=== PATIENT | male | born 1950 | race Caucasian/White ===

== ENCOUNTER 2018-02-01 17:37 | Emergency (ER) | payer MEDICARE ==
[~2018-02-01] VITALS: Ht 172.7 cm; Wt 90.9 kg
[~2018-02-01 17:37] MED LIST: ALBUTEROL S2.5 MG/.5 NEB; ALBUTEROL90 MCG IN; ALDACTONE25 MG PO; ASA LOW DOSE81 MG OR; ASPIRIN LOW81 M1 PO; ASPIRIN81 MG PO; ATORVASTATIN CA40 MG PO; BUMETANIDE2 MG PO; C 250 PO; CARVEDILOL25 MG PO; CENTRUM OR; CIPROFLOXACN500 MG PO; COREG6.25 MG OR; DUONEB IN; FAMOTIDINE20 M1 PO; FINASTERIDE5 MG PO; FOLIC ACID1 MG OR; FUROSEMIDE40 MG PO; GABAPENTIN300 MG PO; HUMALOG100 MG/ML SC; IPRATROPIU0.5 MG/3 M IN; LASIX 40 MG40 MG/TAB PO; LIPITOR40 M1 PO; LISINOPRIL2.5 MG PO; LISINOPRIL5 MG PO; LORTAB 5 OR; MORPHINE; NEURONTIN300 MG PO; NO HOME MEDS; NORCO1 TA1 PO; NOVOLIN 70/30 INNLT SC; NOVOLIN 70/30 SC; NOVOLIN 701000 UNITS SC; PEPCID40 MG OR; PREDNISONE10 MG PO; PRINIVIL5 MG OR; SPIRIVA IN; SYMBICORT 80-4.5MCG IN; SYMBICORT1 AE1 IN; TAMSULOSIN HCL0.4 MG PO; TOUJEO SOL300 UNIT/M SC; VITAMIN C500 MG OR; ZOCOR20 MG OR; [UNRECOGNIZED DRUG - OTHER] PO
[2018-02-01 18:15] LABS: HEMATOCRIT 48.7 % (39.0-50.0); IMMATURE GRANULOCYTES 0.3 % (0.0-1.0); MEAN CELL VOLUME 90.4 fL CALC (80.0-100.0); MEAN CORPUSCULAR HGB 27.8 pG CALC (26.0-32.0); MEAN CORPUSCULAR HGB CONC 30.8 g/L CALC (32.0-36.0); NEUT# 4.86 thou/uL (1.82-7.42); RED BLOOD COUNT 5.39 mill/uL (4.70-6.10)
[2018-02-01 18:23] LABS: ACT PARTIAL THROMBO TIME 24.6 SECONDS (20.0-32.5); PROTHROMBIN TIME 11.4 SECONDS (9.0-12.5)
[2018-02-01 18:27] LABS: ALBUMIN 3.9 g/dL (3.2-5.0); BILIRUBIN, TOTAL 0.6 mg/dL (0.0-1.4); POTASSIUM 4.4 mmol/l (3.5-5.1)
[2018-02-01 18:28] LABS: CREATININE 3.2 mg/dL (0.7-1.3); TOTAL PROTEIN 7.6 g/dL (6.3-8.2)
[2018-02-01] MEDS ORDERED: KLOR-CON 1010 MEQ PO (18:49)
[2018-02-01] MEDS ORDERED: ATORVASTATIN CA40 MG PO (18:51)
[2018-02-01 19:53] LABS: URINE BILIRUBIN - DIPSTICK NEGATIVE (NEGATIVE); URINE BLOOD DIPSTICK LARGE (NEGATIVE); URINE COLOR YELLOW; URINE GLUCOSE - DIPSTICK NEGATIVE (NEGATIVE); URINE KETONE NEGATIVE (NEGATIVE); URINE NITRITE - DIPSTICK NEGATIVE (Negative); URINE PROTEIN - DIPSTICK NEGATIVE (NEG-TRACE); URINE SPECIFIC GRAVITY 1.025; URINE UROBILINOGEN - DIPSTICK 0.2 E.U./dL (0.2)
[2018-02-01 20:00] LABS: URINE CLARITY CLOUDY; URINE LEUK ESTERASE MODERATE (NEGATIVE)
[2018-02-01 20:02] VITALS: BP 131/68
[2018-02-01 20:22] LABS: URINE RBC TNTC RBC/hpf (0-5); URINE SQUAMOUS EPITHELIAL CELL FEW EPI/hpf (0-FEW)
== END 2018-02-01 19:44 | disposition short-term general hospital (02) ==
LOC: ED 17:37
PROVIDERS: Emergency Medicine
DX: I63.9 Cerebral infarction, unspecified (principal); R47.81 Slurred speech; R29.810 Facial weakness; G81.91 Hemiplegia, unspecified affecting right dominant side; R29.703 NIHSS score 3; E11.40 Type 2 diabetes mellitus with diabetic neuropathy, unspecified; I10 Essential (primary) hypertension; B19.20 Unspecified viral hepatitis C without hepatic coma; G89.29 Other chronic pain; M54.5 Low back pain; Z95.1 Presence of aortocoronary bypass graft; Z95.810 Presence of automatic (implantable) cardiac defibrillator; Z96.89 Presence of other specified functional implants
CPT/HCPCS: J2997

== ENCOUNTER 2019-10-27 10:26 | Inpatient (IN) | payer MEDICARE ==
[~2019-10-27] VITALS: Ht 180.3 cm; Wt 101.4 kg
[~2019-10-27 10:26] MED LIST changes: +KLOR-CON 1010 MEQ PO
--- NOTE | 2019-10-27 10:41 | NUR ---
PATIENT TO ROOM, BEDSIDE TRIAGE COMPLETED.
--- NOTE | 2019-10-27 11:00 | NUR ---
PT STATES HAVING SOB STARTING YESTERDAY AND WORSENING TODAY. PT INITAL O2 IN MID 80S, PT MOSTLY ABLE TO COMPLETE A FULL SENTENCE. PT IS AOX4, DENIES ANY C/P, N/V. PT HAS DIMINISHED LUNG SOUNDS
[2019-10-27 11:24] LABS: HEMATOCRIT 43.8 % (39.0-50.0); HEMOGLOBIN 12.8 g/dl (14.0-18.0); IMMATURE GRANULOCYTES 0.4 % (0.0-5.0); MEAN CELL VOLUME 87.1 fL CALC (80.0-100.0); MEAN CORPUSCULAR HGB 25.4 pG CALC (26.0-32.0); MEAN CORPUSCULAR HGB CONC 29.2 g/L CALC (32.0-36.0); NEUT# 4.67 thou/uL (1.82-7.42); RED BLOOD COUNT 5.03 mill/uL (4.70-6.10); RED CELL DISTRI WIDTH 15.3 % (11.5-15.5)
[2019-10-27 11:32] LABS: ALBUMIN 4.3 g/dL (3.2-5.0); POTASSIUM 5.1 mmol/l (3.5-5.1); TOTAL PROTEIN 8.1 g/dL (6.3-8.2)
--- NOTE | 2019-10-27 11:34 | NUR ---
PT PLACE ON BIPAP PER DR. CARDENAS AT 1120. B/S ARE CLEAR ON LEFT SIDE, EXP WHEEZES ON RIGHT SIDE.
[2019-10-27 11:39] LABS: BILIRUBIN, TOTAL 1.2 mg/dL (0.0-1.4); CREATININE 1.9 mg/dL (0.7-1.3)
--- NOTE | 2019-10-27 12:00 | NUR ---
PT RESTING ON STRETCER, IV PATENT WITH FLUIDS RUNNING. PT STATES BREATHING HAS IMPROVED WITH BIPAP
--- NOTE | 2019-10-27 12:34 | NUR ---
PT RESTING ON STRETCHER, IV PATENT WITH ANTIBIOTICS RUNNING, BREATHING HAS IMPROVED ON BIPAP
--- NOTE | 2019-10-27 12:38 | NUR ---
Patient made inpatient by Dr. Sykes and Dr. Nguyen
--- NOTE | 2019-10-27 12:38 | NUR ---
SBAR PRINTED TO FLOOR
[2019-10-27 12:45] VITALS: BP 158/82
--- NOTE | 2019-10-27 13:00 | NUR ---
PT ASLEEP ON STRETHCER.
--- NOTE | 2019-10-27 14:00 | NUR ---
PT RESTING ON STRETHCER, IV PATNENT WITH FLUIDS RUNNING, PT MAINTAINING ON BIPAP
--- NOTE | 2019-10-27 14:34 | NUR ---
PT ASLEEP ON STRETCHER, IV PATENT, 200 ML OF URINE OUTPUT, CONTINUING ON BIPAP
[2019-10-27 14:45] VITALS: BP 156/80
--- NOTE | 2019-10-27 15:00 | NUR ---
PT ASLEEP ON STRETHCER
--- NOTE | 2019-10-27 16:00 | NUR ---
PT RESTING ON STRETCHER, ICU MEDS GIVEN
--- NOTE | 2019-10-27 16:34 | NUR ---
PT HAS 200 ML OF URINE OUTPUT
--- NOTE | 2019-10-27 17:00 | NUR ---
PT ON STRETCHER, PLACED IN POSITION OF COMFORT. ATTEMPING TO GET IN PT BED
[2019-10-27 17:07] VITALS: BP 164/86
--- NOTE | 2019-10-27 18:54 | NUR ---
RT AT BEDSIDE TO REMOVE BIPAP, PT PLACED ON HIGH FLOW NASAL CANULA TO EAT DINNER.
[2019-10-27 19:00] VITALS: BP 136/71
--- NOTE | 2019-10-27 19:00 | NUR ---
PT REMOVED FROM BIPAP TO EAT DINNER. WORE NASAL CANULA FOR DINNER. PLACED BACK ON BIPAP
--- NOTE | 2019-10-27 19:02 | NUR ---
PT FINISHED MEAL- [facility]
--- NOTE | 2019-10-27 19:14 | NUR ---
REPORT GIVEN TO CORBY COELHO
--- NOTE | 2019-10-27 19:52 | NUR ---
PHARM CALLED TO PUT BUMEX/INSULIN IN PYXIS
--- NOTE | 2019-10-27 22:13 | NUR ---
TREATMENT IN PROGRESS
--- NOTE | 2019-10-27 22:26 | NUR ---
TO FLOOR VIA W/C WITH BIPAP WITH NURSE AND RT.
--- NOTE | 2019-10-27 22:35 | NUR ---
PATIENT ARRIVES VIA WC ACCOMPANIED BY EMT TECH AND ON BIPAP, RT WADNER AT SIDE. PT ABLE TO WALK TO BED, USED URINAL BEFORE LAYING DOWN. VOIDED 225 ML, YELLOW/CLEAR URINE. ON BIPAP 02 35%. NO SOB NOTED. PT DENIES SOB OR PAIN. PT DOES HAVE AN INTERNAL MORPHINE THAT HE REPORTS IS OFF. ALERT AND ORIENTED X4. HEAD TO TOE NURSING ASSESSMENT PERFORMED. PATIENT IS ABLE TO ANSWER ALL QUESTIONS, FOLLOW COMMANDS. POC FOR TONIGHT DISCUSSED, SELF REPOSITIONS. ABLE TO SIHN INVENTORY SHEET AND FALL SHEET. RAC 20G SLAINE LOCKED. ABLE TO DRINK CUP OF ICED WATER. DECLINE FLU AND PNA VACCINES. DRIVES SELF. NO RECENT STRESSES. NKA. 219.8 LBS, BED ZEROED BEFORE PT ARRIVED. LAST BM 10/26. USES WALKER OR CANE AT HOME. REPORTS HE USES O2 AT HOME NEEDED AND BEDTIME. SELF REPOSITIONS. URINAL AT BEDSIDE. CALL LIGHT WITHIN REACH.
[2019-10-27 23:00] VITALS: BP 156/77
--- NOTE | 2019-10-27 23:46 | NUR ---
PT'S DAUGHTER CALLED, DID NOT HAVE PASSCODE. INFORMED PT WILL BE GIVEN PASSCODE AND HE CAN GIVE IT TO HER. DAUGHTER AGREES, WILL CALL BACK TOMORROW AM.
--- NOTE | 2019-10-27 23:55 | NUR ---
TO FLOOR VIA W/C WITH BIPAP
[2019-10-28] VITALS (18 sets, daily range): BP systolic 123–167; BP diastolic 64–93
--- NOTE | 2019-10-28 03:08 | NUR ---
PT RESTS WITH HOB 30 DGEREES. BIPAP INTACT. RESTS WITH EYES CLOSED. CALL LIGHT WITHIN REACH.
--- NOTE | 2019-10-28 05:14 | NUR ---
PATIENT ABLE TO USE THE URINAL. REMAINS ON BIPAP. NO ACUTE DISTRESS SHOWN. CALL LIGHT WITHIN REACH.
--- NOTE | 2019-10-28 06:09 | NUR ---
PT LAYS WITH HOB ABOUT 30 DEGREES. ON BIPAP. RESTS WITH EYES CLOSED. CALL LIGHT WITHIN REACH.
[2019-10-28 06:10] LABS: CHOLESTEROL HDL RATIO 3.5 (<4.4 (CALC))
--- NOTE | 2019-10-28 07:25 | NUR ---
PT RESTING ON STRECTHER WITH BI PAP IN PLACE SEE FLOW SHEET FOR SETTINGS, ALERT AND ORIENTED, DENIES PAIN OR DISCOMFORT, AM ASSESSMENT COMPLETED SEE INTERVENTIONS, SKIN INTACT SOME BRONZING NOTED TO BILATERAL LE WITH SMALL ABRASION NOTED TO PEREA SCABBED AOVER WITH NO S/S OF INFECTION, TRACE EDEMA WITH PPPB, ABD SOFT PT STATES LAST BM 10/26/19 (HE THINKS) VOIDS USING URINAL W/O INCIDENT, AM ACCU CHECK 288 WILL PROVIDE COVERAGE ORDERED, SAFETY MEASURES REINFORCED, CALL THURSTON WITHIN REACH ,WILL CONTINUE TO MONITOR.
--- NOTE | 2019-10-28 08:05 | NUR ---
BIPAP PLACED STANDBY. PT. PLACED ON 2L NC.
--- NOTE | 2019-10-28 08:10 | NUR ---
BI PAP OFF AND SET UP ASSIST PROVIDED FOR AM MEAL, PT ABLE TO ASSIST WITH REPOSITION, O2 ON AT 2L VIA NC, PT STATES HE WEARS IT AT HOME WELL, MEDICATED WITH BUMEX ORDERED AND URINAL WITHIN REACH.
--- NOTE | 2019-10-28 08:35 | NUR ---
PT OOB TO BSC WITH MOD ASSIST, TOLERATED ACITVITY WELL, CALL THURSTON WITHIN REACH
--- NOTE | 2019-10-28 08:40 | NUR ---
AT BEDSIDE FOR AM ROUNDS, POC DISCUSSED
--- NOTE | 2019-10-28 08:55 | NUR ---
PT CONTINENT OF MODERATE AMOUNT CLEAR YELLOW URINE AND MODERATE SOFT BROWN BM, SELF STEW CARE PROVIDED AND MOD ASSIST BACK TO BED, CALL THURSTON WITHIN REACH
--- NOTE | 2019-10-28 10:11 | NUR ---
CASE MGMT AT BEDSIDE
--- NOTE | 2019-10-28 11:45 | NUR ---
PT RESTING INBED, OFFERS NO NEW COMPLAINTS, CONTINUES TO TOLERATE NC WITHNO SOB OR DISTRESS NOTED, WILL CONTINUE TO MONITOR.
--- NOTE | 2019-10-28 12:35 | NUR ---
PT APPETITE GOOD WITH MODERATE TO GOOD PO INTAKE AT MEALS, TOLERATES WELL AND DENIES ANY COMPLAINTS, CALL THURSTON WITHIN REACH
--- NOTE | 2019-10-28 13:50 | NUR ---
PT RESTING IN BED, DOZES INTERMITTENTLY, NO COMPLAINTS OFFERED, CALLBELL WITHIN REACH.
--- NOTE | 2019-10-28 14:29 | NUR ---
MEDICATED ORDERED, TOLERATED WELL, O2 REMAINS ON VIA C WITH PT TOLERATING WELL. VS STABLE PT REMAINS AFEBRILE, WILL CONTINUE TO MONITOR.
--- NOTE | 2019-10-28 15:35 | NUR ---
PHONE ASSURANCE ANALYST PROVIDED FOR PT TO CHARGE HIS CELL PHONE, URINAL AT BEDSIDE AND PT USING W/O INCIDENT, CALL THURSTON WITHIN REACH WILL CONTINUE TO MONITOR.
--- NOTE | 2019-10-28 16:32 | NUR ---
PT RESTING IN BED WATCHING TELEVISION, NO S/S OF DISTRESS OR DISCOMFORT NOTED O2 REMAINS ON VIA NC WITH O2 SATS MAINTAINED 88-93% WILL CONTINUE TO MONITOR.
--- NOTE | 2019-10-28 17:38 | NUR ---
SET UP ASSIST PROVIDED FOR PM MEAL, CALL THURSTON WITHIN REACH
--- NOTE | 2019-10-28 17:55 | NUR ---
INTO SEE PT, PLAN OF CARE DISCUSSED
--- NOTE | 2019-10-28 19:30 | NUR ---
awake. denies resp distress. o2 cont per nc. assistant district attorney shows sinus rhythm pacs pvcs hr 74. #20 rac saline lock. po fluids taken fair. voids per urinal. fall precautions cont.
--- NOTE | 2019-10-28 22:00 | NUR ---
watching tv. no c/o voiced. quality assurance monitor body shows sinus rhythm pacs pvcs hr 74.
[2019-10-29] VITALS (12 sets, daily range): BP systolic 102–147; BP diastolic 57–93
--- NOTE | 2019-10-29 00:01 | NUR ---
eyes closed. no distress. awake overnight monitor shows sinus rhythm pacs pvcs hr 62.
--- NOTE | 2019-10-29 02:00 | NUR ---
resting quietly. resps even & unlabored. no apparent distress.
--- NOTE | 2019-10-29 04:00 | NUR ---
eyes closed. no apparent distress. o2 cont.
--- NOTE | 2019-10-29 05:25 | NUR ---
lab here. blood drawn.
[2019-10-29 06:09] LABS: HEMATOCRIT 39.2 % (39.0-50.0); HEMOGLOBIN 11.5 g/dl (14.0-18.0); MEAN CELL VOLUME 88.1 fL CALC (80.0-100.0); MEAN CORPUSCULAR HGB 25.8 pG CALC (26.0-32.0); MEAN CORPUSCULAR HGB CONC 29.3 g/L CALC (32.0-36.0); RED BLOOD COUNT 4.45 mill/uL (4.70-6.10); RED CELL DISTRI WIDTH 15.3 % (11.5-15.5)
[2019-10-29 06:31] LABS: CREATININE 1.9 mg/dL (0.7-1.3); MAGNESIUM 2.3 mg/dL (1.6-2.3)
[2019-10-29 06:50] LABS: POTASSIUM 5.3 mmol/l (3.5-5.1)
--- NOTE | 2019-10-29 09:49 | NUR ---
REPORT FROM YENNI BERMUDEZ. PT AWAKE, ALERT AND ORIENTED WATCHING TV AT THIS TIME. RESP EVEN AND UNLABORED WITH NO COUGH NOTED AT THIS TIME. SIDE RAILS UP X2 WITH CALL LIGHT AND URINAL WITHIN REACH. TELE SR WITH OCCASIONAL PVCS. NO PAIN OR NEEDS AT THIS TIME. URINAL EMPTIED.
--- NOTE | 2019-10-29 10:16 | NUR ---
PT ASLEEP AND RESTING IN BED QUIETLY. TELE A FIB. NO DISTRESS NOTED.
--- NOTE | 2019-10-29 12:33 | NUR ---
PT ASLEEP AFTER EATING LUNCH. NO DISTRESS NOTED. SIDE RAILS UP X2 CALL LIGHT WITHIN REACH.
--- NOTE | 2019-10-29 16:46 | NUR ---
pt resting quietly with no c/o at this time. resp even and unlabored. tele SR with occ pvc's HR 66.
--- NOTE | 2019-10-29 20:00 | NUR ---
PATIENT LAYING SUPINE WITH EYES OPEN WATCHING TV, ON ROOM AIR AND O2 GREATER 95%, NO ACTIVE DISRESS NOTED, NO C/O PAIN, ALERT ND ORIENTED X3. AFEBRILE, SINUS RHYTHM ON TELE WITH hr BETWEEN 60-65. HEAD TO TOE ASSESSMENT PERFORMED, POC FOR TOBIGHT DISCUSSED, PATIENT VERBALIZE UNDERSTANDING.
--- NOTE | 2019-10-29 22:00 | NUR ---
Patient laying in bed with eyes open watching TV, No c/o of pain nor discomfort. No s/s of resp. distress.
[2019-10-30] VITALS (10 sets, daily range): BP systolic 114–155; BP diastolic 65–87
--- NOTE | 2019-10-30 | NUR ---
Patient laying in bed with eyes closed, No distress,
--- NOTE | 2019-10-30 02:00 | NUR ---
Patient laying in bed with eyes closed, no distress noted
--- NOTE | 2019-10-30 03:56 | NUR ---
Patient laying in bed with eyes closed, no distress noted, no s/s of pain.
--- NOTE | 2019-10-30 06:12 | NUR ---
Patient up in bed sitting up watching TV. Nurse emptied 500ml of urine. Patient did not c/o pain nor discomfort. Patient not in distress.
[2019-10-30 06:35] LABS: CREATININE 1.8 mg/dL (0.7-1.3); MAGNESIUM 2.3 mg/dL (1.6-2.3)
[2019-10-30 06:57] LABS: POTASSIUM 5.4 mmol/l (3.5-5.1)
--- NOTE | 2019-10-30 07:33 | NUR ---
PT RESTING IN BED, A&OX4, ABLE TO MAKE NEEDS KNOWN. PT DENIES CP, SOB OR DISTRESS AT THIS TIME.HR, 64. PT SAO2@90% ON 3LPM VIA NC. LS WITH WHEZZING THROUGHOUT. PT ACCUCHECK 118, NO S/S COVERAGE AT THIS TIME. ABDOMEN SOFT, DISTENDED, NON-TENDER BSX4 ACTIVE. LBM 10-28-2019. CALL LIGHT IN REACH. WILL MONITOR.
--- NOTE | 2019-10-30 09:24 | NUR ---
pt off unit for cxr 2v via wc.
--- NOTE | 2019-10-30 09:29 | NUR ---
PT BACK FROM X RAY.
--- NOTE | 2019-10-30 09:46 | NUR ---
PT ASSISTED TO RECLINER TO SIT UP FOR A BIT. SLOW, WEAK, GAIT NOTED.
--- NOTE | 2019-10-30 11:25 | NUR ---
NOTIFIED RT OF PENDING DUONEB.
--- NOTE | 2019-10-30 12:00 | NUR ---
PT SITTING IN THE RECLINER. RESPIRATIONS EVEN/UNLABORED. SA02@93% ON 3LPM VIA NC. CALL LIGHT IN REACH. URINAL AT BEDSIDE. WILL MONITOR.
--- NOTE | 2019-10-30 14:00 | NUR ---
PT SITTING IN THE RECLINER, FRESH WATER PROVIDED. PT OFFERS NO COMPLAINTS AT THIS TIME. CALL LIGHT IN REACH. NARINDER MONITOR.
--- NOTE | 2019-10-30 16:15 | NUR ---
DR. GRIGSBY AT [facility] FOR ASSESSMENT AND TO DISCUSS PLAN OF CARE. PT TO STAY 1 MORE NIGHT.
--- NOTE | 2019-10-30 17:19 | NUR ---
RT AT BEDSIDE FOR TX.
--- NOTE | 2019-10-30 17:37 | NUR ---
DIETARY ON UNIT, DINNER TRAY SET UP.
--- NOTE | 2019-10-30 18:21 | NUR ---
ASSISTED PT BACK TO BED, PT TOLERATED WELL, WITH SLOW STEADY GAIT. RESPIRATIONS EVEN/UNLABORED. CALL LIGHT IN REACH. WILL MONITOR.
--- NOTE | 2019-10-30 19:00 | NUR ---
awake. denies resp diff. o2 cont per nc. trailer truck driver shows sinus rhythm 1st degree avb pacs pvcs. po fluids taken well. voids per urinal. fall precautions cont.
--- NOTE | 2019-10-30 22:00 | NUR ---
watching tv. no distress. o2cont.
[2019-10-31] VITALS (8 sets, daily range): BP systolic 130–172; BP diastolic 69–93
--- NOTE | 2019-10-31 00:01 | NUR ---
eyes closed. no distress. child monitor shows sinus rhythm 1st degree avb pvcs pacs hr 66.
--- NOTE | 2019-10-31 02:00 | NUR ---
resting quietly. resps even & unlabored. no apparent distress.
--- NOTE | 2019-10-31 04:30 | NUR ---
extension tubing attached. amb with 1 assist to br. slightly unsteady on feet. sao2 82% upon return from br. denies distress.
--- NOTE | 2019-10-31 05:00 | NUR ---
lab here. blood drawn.
[2019-10-31 05:49] LABS: CREATININE 1.6 mg/dL (0.7-1.3)
[2019-10-31 05:53] LABS: POTASSIUM 5.5 mmol/l (3.5-5.1)
--- NOTE | 2019-10-31 05:58 | NUR ---
no acute distress this shift. color television console monitor shows sinus rhythm sinus rhythm 1st degree avb pvcs pacs hr 60
--- NOTE | 2019-10-31 07:00 | NUR ---
RECIEVED REPORT FROM LARA HYMAN. ASSUMED PT CARE.
--- NOTE | 2019-10-31 08:00 | NUR ---
pt a&ox4, able to make needs known. respirations even/unlabored. assessment completed. call light in reach. will monitor.
--- NOTE | 2019-10-31 10:00 | NUR ---
ASSISTED PT TO RECLINER, COMPLETE BATH, LINEN CHANGED, MOUTH CARE GIVEN. PT TOLERATED WELL. REMAINS SITTING IN RECLINER, CALL LIGHT IN REACH. WILL MONITOR.
--- NOTE | 2019-10-31 11:30 | NUR ---
DIETARY ON UNIT, LUNCH TRAY SET UP.
--- NOTE | 2019-10-31 12:27 | NUR ---
PT STATES HE IS FEELING BETTER TODAY. ANTICIPATING GOING HOME. SA02@94% ON 3LPM VIA RI. PT REMAINS SITTING UP IN RECLINER. CALL LIGHT IN REACH. WILL MONITOR.
--- NOTE | 2019-10-31 12:30 | NUR ---
DR. TRACEY AT [facility] FOR ASSESSMENT AND TO DISCUSS PLAN OF CARE. NEW ORDERS RECIEVED.
[2019-10-31] MEDS ORDERED: NORVASC5 M1 PO (12:37)
[2019-10-31] MEDS ORDERED: ZITHROMAX250 MG PO (12:54)
[2019-10-31] MEDS ORDERED: MEDDOSEPAK PO (12:54)
--- NOTE | 2019-10-31 13:25 | NUR ---
RT AT BEDSIDE FOR TREATMENT.
--- NOTE | 2019-10-31 14:45 | NUR ---
PRACHI ADAMS AT BEDSIDE TO DISCUSS HH OPTION, PT REFUSED HH.
--- NOTE | 2019-10-31 15:00 | NUR ---
IV site discontinued, cath intact. No edema , no redness, voices no discomfort.
--- NOTE | 2019-10-31 15:25 | NUR ---
Discharge instructions given. Patient verbalizes understanding of same. Discharged in stable condition via Wheelchair to Home with family. All belongings sent with pt. PRESCRIPTION SENT TO [facility] IN [place] PER PT REQUEST FOR INSURANCE PURPOSES, CANCELLED AT [facility].
== END 2019-10-31 15:25 | disposition home or self-care (01) | DRG 193 ==
LOC: ED 10:26 → ED-I 11:55 → ED 12:33 → ED-I 12:34 → ICU 12:34
PROVIDERS: Family Medicine; ADMIT Internal Medicine; ATTEND Internal Medicine
PROC: 5A09357 Assistance with Respiratory Ventilation, Less than 24 Consecutive Hours, Continuous Positive Airway Pressure (ICD-10-PCS; principal; 2019-10-27)
DX: J18.9 Pneumonia, unspecified organism (principal); J96.21 Acute and chronic respiratory failure with hypoxia; I50.23 Acute on chronic systolic (congestive) heart failure; E87.2 Acidosis; I13.0 Hypertensive heart and chronic kidney disease with heart failure and stage 1 through stage 4 chronic kidney disease, or unspecified chronic kidney disease; J44.1 Chronic obstructive pulmonary disease with (acute) exacerbation; J44.0 Chronic obstructive pulmonary disease with (acute) lower respiratory infection; D63.1 Anemia in chronic kidney disease; E11.22 Type 2 diabetes mellitus with diabetic chronic kidney disease; N18.3 Chronic kidney disease, stage 3 (moderate); E11.40 Type 2 diabetes mellitus with diabetic neuropathy, unspecified; I25.10 Atherosclerotic heart disease of native coronary artery without angina pectoris; E78.5 Hyperlipidemia, unspecified; N40.0 Benign prostatic hyperplasia without lower urinary tract symptoms; Z79.4 Long term (current) use of insulin; Z95.1 Presence of aortocoronary bypass graft; Z95.810 Presence of automatic (implantable) cardiac defibrillator; Z99.81 Dependence on supplemental oxygen; Z87.891 Personal history of nicotine dependence
CPT/HCPCS: J1650

== ENCOUNTER 2020-01-05 | Inpatient (IN) | payer MEDICARE ==
[~2020-01-05] MED LIST changes: +MEDDOSEPAK PO; +NORVASC5 M1 PO; +ZITHROMAX250 MG PO
--- NOTE | 2020-01-05 15:02 | NUR ---
PT TO ROOM VIA EMS
--- NOTE | 2020-01-05 15:20 | NUR ---
PT ASSESSED. REPORTS SHORT OF BREATH FOR THE PAST COUPLE DAYS. DID NOT TAKE ANY MEDICATION OR USE INHALERS TODAY. DID NOT WEAR HOME O2. PT SPEAKING IN FULL SENTENCES.
[2020-01-05 15:24] LABS: HEMATOCRIT 37.9 % (39.0-50.0); HEMOGLOBIN 10.9 g/dl (14.0-18.0); IMMATURE GRANULOCYTES 0.5 % (0.0-5.0); MEAN CORPUSCULAR HGB 23.6 pG CALC (26.0-32.0); MEAN CORPUSCULAR HGB CONC 28.8 g/dL CAL (32.0-36.0); NEUT# 6.39 thou/uL (1.82-7.42); RED BLOOD COUNT 4.62 mill/uL (4.70-6.10); RED CELL DISTRI WIDTH 19.2 % (11.5-15.5)
[2020-01-05 16:06] LABS: CREATININE 1.8 mg/dL (0.7-1.3)
--- NOTE | 2020-01-05 16:07 | NUR ---
RECIEVED CALL FROM ROOMMATE EXPRESSING CONCERN THAT PT WAS OCCASSIONALLY INCONTINENT OF STOOL AND HAS BEEN FOUND WANDERING OUTSIDE ON SEVERAL OCCASSIONS LOOKING FOR HIS TRAILER. PT AGREES THAT THIS HAS HAPPENED. CONTACT FATEMEH WALLACE [phone]
[2020-01-05 16:15] LABS: ALBUMIN 3.4 g/dL (3.2-5.0); BILIRUBIN, TOTAL 2.4 mg/dL (0.0-1.4); POTASSIUM 3.6 mmol/l (3.5-5.1); TOTAL PROTEIN 6.4 g/dL (6.3-8.2)
--- NOTE | 2020-01-05 17:10 | NUR ---
16 FR MOORE PLACED. URINE SPECIMEN SENT TO LAB
--- NOTE | 2020-01-05 17:14 | NUR ---
MED SURG UNABLE TO TAKE REPORT AT THIS TIME
[2020-01-05 17:32] LABS: URINE BLOOD DIPSTICK LARGE (NEGATIVE); URINE COLOR YELLOW; URINE GLUCOSE - DIPSTICK NEGATIVE (NEGATIVE); URINE KETONE NEGATIVE (NEGATIVE); URINE NITRITE - DIPSTICK NEGATIVE (Negative); URINE PH 5.5 (4.5-8.0); URINE PROTEIN - DIPSTICK >=300 mg/dL (NEG-TRACE); URINE SPECIFIC GRAVITY >=1.030; URINE UROBILINOGEN - DIPSTICK 0.2 E.U./dL (0.2)
[2020-01-05 17:35] LABS: URINE BILIRUBIN - DIPSTICK NEGATIVE (NEGATIVE); URINE LEUK ESTERASE SMALL (NEGATIVE)
--- NOTE | 2020-01-05 17:41 | NUR ---
REPORT CALLED TO LARA HOOPER.
--- NOTE | 2020-01-05 17:45 | NUR ---
URINE OUTPUT 200.
--- NOTE | 2020-01-05 17:52 | NUR ---
Admission Note Report Given to: MELITON HOOPER Transported by: Wheelchair X Stretcher Transported with: X Nurse Transporter X Patent IV X O2 X Bridge Mechanic Location: ICU X MS2 PT TO ROOM 284 IN STABLE CONDITION. PT DE-SATED UPON TRANSFER FROM STRETCHER TO BED. PT PLACED ON 4 L O2 AND SAT UP IN HIGH FOWLERS POSITION. PT SATURATION INCREASED TO 94% ON 02. CARE RELINQUISHED TO LARA HOOPER.
--- NOTE | 2020-01-05 17:55 | NUR ---
PT ARRIVED TO MED/SURG ROOM 284 IN STABLE CONDITION VIA STRETCHER ACCOMPANIED BY MELITON ARCEO;PT AMBULATED WITH A WEAK GAIT TO STANDING SCALE AND BEDSIDE;EXERTIONAL SOB NOTED AND 02 SATS DROPPED TO LOW 80'S ON O2 @ 4L VIA NC,PURSED LIP BREATHING EDUCATED AND O2 SATS MIGUELANGEL TO 90%;PT A&O X 3,ORIENTED TO ROOM AND CALL LIGHT SYSTEM;EMS #20G TO LEFT FOREARM FLUSHED AND PATENT,SITE APPEARS HEALTHY;ACCUCHECK OBTAINED RESULTING IN 273;MOORE CATHETER PATENT DRAINING CLEAR/YELLOW URINE TO GRAVITY WITH EASE;TELE MONITORING IN PLACE;DINNER TRAY PROVIDED;PT DENIES ANY ADDITIONAL NEEDS AND IS ENCOURAGED TO CALL FOR ASSISTANCE IF NEEDED;BED IN THE LOWEST POSITION WITH CALL LIGHT IN REACH;WILL CONTINUE TO MONITOR
[2020-01-05 18:00] VITALS: BP 142/77
[2020-01-05 19:56] VITALS: BP 137/83
--- NOTE | 2020-01-05 20:00 | NUR ---
PATIENT RESTING IN BED WITH O2 VIA NASAL CANNULA IN PLACE. APPEARS SLEEPING WITH EYES CLOSED. RESP ARE RAPID AND SHALLOW. TELE MONITOR INPLACE. ;PATIENT RESPONDS WHEN SPOKEN TO. ALERT AND ORIENTEDX3. POOR APPETITE FOR DINNER. TRAY REMOVED FROM ROOM. PATIENT WITH NO COMPLAINTS AT THIS TIME. IV SITE TO RIGHT FOREARM INTACT AND IS HEALTHY AT THIS TIME WITH GOOD BLOOD RETURN. MOORE CATH PATENT AND DRAINING YELLOW URINE. SAFETY PRECAUTIONS REINFORCED. CALL LIGHT IN REACH. WILL CONT TO MONITOR.
--- NOTE | 2020-01-05 21:00 | NUR ---
ACCU-CHECK IS 281-NO INSULIN ORDERS AT THIS TIME. CALL TO DR. GOODWIN AND NEW ORDERS RECEIVED. PATIENT TO RECIEVE LEVEMIR 40 UNITS TONIGHT AND LOW DOSE NOVALOG SLIDING SCALE COVERAGE-3 UNITS SQ TONIGHT WHEN PROFILED ON EMAR. WILL CONT TO MONITOR.
--- NOTE | 2020-01-05 23:15 | NUR ---
PATIENT RESTING IN BED AND ADMISSION PROCESS FINISHED. O2 SATS MID TO LOW 80'S. PATIENT WAS REPOSITIONED IN BED AND HPB ELEVATED. PATIENT WAS SWITCHED TO HIGH FLOW N/C AND O2 RECOVERED AND WERE IN THE LOW TO MID 90'S TELE REMAINS IN PLACE. MOORE CONT TO DRAIN YELLOW URINE. CALL LIGHT IN REACH. WILL CONT TO MONITOR.
[2020-01-06] VITALS (24 sets, daily range): BP systolic 87–118; BP diastolic 55–78
--- NOTE | 2020-01-06 02:14 | NUR ---
PATIENT RESTING IN BED WITH HOB ELEVATED AND O2 VIA HIGH FLOW NASAL CANNULA IN PLACE. O2 SATS HI 80'S-88-89. APPEARS SLEEPNG WITH EYES OPEN. TELE MONITOR IN PLACE. FOLSY PATENT AND DRAINING YELLOW URINE. CALL LIGHT IN REACH. WILL CONT TO MONITOR.
--- NOTE | 2020-01-06 05:00 | NUR ---
PATIENT RESTING IN BED AT THIS TIME WITH HOB ELEVATED AND O2 VIA HIGH FLOW NASAL CANNULA IN PLACE AT 3LPM. O2 SATS IN MID TO HIGH 80'S. PATIENT WAS REPOSITIONED, STILL WITH SHALLOW BREATHING AND ENCOURAGED PATIENT TO DO DEEP BREATHING EXERCISES. TELE MONITOR IN PLACE. IV SITE TO LEFT FOREARM INTACT. O2 SATS ARE UP TO LOW 90'S AFTER NEB TREATMENT . MOORE PATENT AND DRAINING YELLOW URINE.SAFETY PRECAUTIONS REINFORCED. CALL LIGHT IN REACH. WILL CONT TOO MONITOR.
[2020-01-06 06:14] LABS: POTASSIUM 3.9 mmol/l (3.5-5.1)
[2020-01-06 06:15] LABS: MAGNESIUM 2.1 mg/dL (1.6-2.3)
--- NOTE | 2020-01-06 06:30 | NUR ---
PATIENT WITH GLUCOSE OF 60 ON MORNING LABS. PATIENT PROVIDED JUICE AND SNACK AT THIS TIME. CALL DIETARY FOR EARLYU BREAKFAST TRAY. WILL CONT TOO MONITOR.
--- NOTE | 2020-01-06 08:30 | NUR ---
PATIENT A/OX4, NO C/O PAIN, PATIENT O2 SATS 80% AT REST ON O2 AT 4L, NOTIFIED SLOT MANAGER ABOUT PATIENT O2 SATS, SLOT MANAGER INSTRUCTED ASSIGN NURSE TO INCREASE O2 TO 8L, PATIENT O2 SATS 83%, PATIENT NO C/O SHORTNESS OF BREATHE, MD AND RT AT BEDSIDE ASSESSING PATIENT, PATIENT HEART RHYTHM IN NORMAL SINUS WITH FIRST DEGREE AV BLOCK, YELLOW DRAINING INTO MOORE WITHOUT COMPLICATIONS
--- NOTE | 2020-01-06 09:35 | NUR ---
PATIENT A/OX4, NO C/O PAIN, PATIENT ON O2 VIA NC, PATIENT TRANSFER TO ICU, NURSE TO NURSE REPORT GIVEN AT BEDSIDE
--- NOTE | 2020-01-06 09:50 | NUR ---
PT TO ICU BED 5 VIA BED. BEDSIDE REPORT RECEIVED FROM CLAYTON COELHO. PT ORIENTED TO ROOM AND UNIT. RT AT BEDSIDE TO PLACE PATIENT ON BIPAP. LUNGS ARE DIMINISHED THROUGHOUT. O2 SATS 70-75% ON O2 8L NC HI MARCUS. PT REPORTS NOT FEELING SOB ONLY IF HE GETS UP AND EXERTS SELF. CALL LIGHT IN REACH. WILL CONTINUE TO MONITOR.
--- NOTE | 2020-01-06 10:31 | NUR ---
PT RESTING COMFORTABLY IN BED WITH EYES CLOSED ON BIPAP. RESP ARE EVEN AND UNALBORED. WILL CONTINUE TO MONITOR
--- NOTE | 2020-01-06 11:40 | NUR ---
PT SET UP FOR NOON MEAL. PT PLACED ON O2 10L NC HI FLOW FOR MEAL
--- NOTE | 2020-01-06 12:30 | NUR ---
PT PLACED BACK ON BIPAP AT THIS TIME.
--- NOTE | 2020-01-06 13:46 | NUR ---
DAUGHTER CALLED FOR UPDATE. UPDATE PROVIDED.
--- NOTE | 2020-01-06 14:00 | NUR ---
PT RESTING IN BED WITH EYES CLOSED ON BIPAP. RESP ARE EVEN AND UNLABORED. NO DISTRESS NOTED. CALL LIGHT IN REACH. WILL CONTINUE TO MONITOR.
--- NOTE | 2020-01-06 16:15 | NUR ---
DR GRIGSBY NOTIFIED OF PATIENT STATUS AND DESATS OFF BIPAP IMMEADIATELY. ORDERS RECEIVED FOR FLU SWAB
--- NOTE | 2020-01-06 17:10 | NUR ---
DR GRIGSBY NOTIFIED OF NEGATIVE FLU SWAB. ORDERS RECEIVED TO TEST FOR COVID-19. PHONED ER FOR GUIDANCE AND EDUCATIONS ON TEST SAMPLING. INSTRUCTIONS GIVEN TO CONTACT LAURA WITH [facility]. AWAITING JANUARY TO PHONE THE UNIT AT THIS TIME.
--- NOTE | 2020-01-06 17:30 | NUR ---
COVID-19 SWAB OBTAINED AND SENT TO [facility]. [facility] NOTIFIED. INFECTION CONTROLLED NOTIFIED. PT MOVED TO NEGATIVE PRESSURE ROOM WITH MASK IN PLACE. PLACED ON AIRBORNE PRECAUTIONS.
--- NOTE | 2020-01-06 18:36 | NUR ---
DR HENDRICKS ON THE PHONE WITH DR GRIGSBY TO DISCUSS NEED FOR INTUBATION VS NOT INTUBATING.
--- NOTE | 2020-01-06 19:27 | NUR ---
PATIENT LAYS WITH HOB 45 DEGREES. RESTS WITH EYES CLOSED. SATS 90% ON 10 L/MIN HIGH FLOW NC. NO ACUTE DISTRESS SHOWN. CALL LIGHT WITHIN REACH.
--- NOTE | 2020-01-06 20:01 | NUR ---
RT CALLED BLOOD GAS RESULTS TO DR GRIGSBY. NO NEW ORDERS RECEIVED.
--- NOTE | 2020-01-06 20:25 | NUR ---
PT ID AND MEDS VERIFIED BY 2 RN'S PRIOR TO NURSE ENTERING ISOLATION ROOM.
--- NOTE | 2020-01-06 20:35 | NUR ---
PATIENT LAYS WITH HOB 45 DEGREES. ALERT AND ORIENTED X4. WATCHES TV. SATS 89%-90% ON 10 L/MIN HIGH FLOW NC. NO SOB NOTED, PATIENT REPORTS HE BECOMES SOB ONLY WITH EXERTION. NURSING ASSESSMENT PERFROMED. DENIES PAIN. RFA 20 G EMS IV INTACT, SALINE LOCKED. MOORE CATHETER INTACT. SB/SR ON TELEMETRY WITH OCC. PVC'S. 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 NO COUGH NOTED. AFEBRILE. POC FOR TONIGHT DISCUSSED, PATIENT AGREES AND UNDERSTANDS. BS CHECKED, NO INSULIN NEEDED TONIGHT. CALL LIGHT WITHIN REACH.
[2020-01-07] VITALS (10 sets, daily range): BP systolic 95–135; BP diastolic 60–80
--- NOTE | 2020-01-07 01:15 | NUR ---
PATIENT AWAKENS EASILY WITH VERBAL STIMULI, SATS 92% ON HIGH FLOW NC AT 10 ML/MIN. NO SOB NOTED. REQUESTS WATER, ICE PROVIDED AND AGIAN REMINDED HE NEEDS TO RESTRICT FLUIDS DUE TO FLUID OVERLOD, HE HAS HAD 2 CUPS OF COFFEE TONIGHT, PT AGREES AND UNDERSTANDS. NO ACUTE DISTRESS SHOWN. NO COMPLAINTS. CALL AFEBRILE, SB ON TELEMETRY. BP WNL. CALL LIGHT WITHIN REACH.
--- NOTE | 2020-01-07 05:01 | NUR ---
NEW IV PLACED FROM EMS SITE, BLOOD WORK DRAWN. MOORE BAG EMPTIED, PATIENT WEIGHED. PROVIDED ICE. NO ACUTE DISTRESS SHOWN. NO COMPLAINTS. PATIENT PULLED HIMSELF UP WITH VERBAL CUEING. CALL LIGHT WITHIN REACH.
[2020-01-07 05:15] LABS: HEMATOCRIT 39.9 % (39.0-50.0); HEMOGLOBIN 11.1 g/dl (14.0-18.0); IMMATURE GRANULOCYTES 0.3 % (0.0-5.0); MEAN CORPUSCULAR HGB 23.9 pG CALC (26.0-32.0); MEAN CORPUSCULAR HGB CONC 27.8 g/dL CAL (32.0-36.0); NEUT# 5.97 thou/uL (1.82-7.42); RED BLOOD COUNT 4.64 mill/uL (4.70-6.10); RED CELL DISTRI WIDTH 18.6 % (11.5-15.5)
[2020-01-07 05:40] LABS: CREATININE 2.1 mg/dL (0.7-1.3); POTASSIUM 4.1 mmol/l (3.5-5.1)
--- NOTE | 2020-01-07 05:55 | NUR ---
rt in room for breathing tx.
--- NOTE | 2020-01-07 07:00 | NUR ---
PT RESTING IN BED AWAKE. PT IS ALERT AND ORIENTED X3. SHIFT ASSESSMENT COMPLETED AT THIS TIME. IV PATENT X1. CALL LIGHT IN REACH. WILL CONTINUE TO MONITOR.
--- NOTE | 2020-01-07 08:54 | NUR ---
DR GRIGSBY AT BEDSIDE AT THIS TIME.
--- NOTE | 2020-01-07 09:49 | NUR ---
pt resting in bed with eyes closed. resp are even and unlabored nodistress noted. call light in reach. will continue to monitor
--- NOTE | 2020-01-07 12:00 | NUR ---
PT RESTING IN BED WITH EYES CLOSED. AROUSES TO VERBAL STIMULI. RESP ARE EVEN AND UNLABORED. NO DISTRESS NOTED. PT SET UP FOR NOON MEAL AT THIS TIME. CALL LIGHT IN REACH WILL CONTINUE TO MONITOR.
--- NOTE | 2020-01-07 13:15 | NUR ---
PT ASSISTED UP TO CHAIR AT BEDSIDE. DYSPNEA ON MINIMAL EXERTION NOTED. PATIENT PROVIDED TOOTHBRUSH AND TOOTHPASTE AND HYGIENE CARE. LINENS CHANGED. CALL LIGHT IN REACH. PT ENCOURAGED TO STAY SITTING IN CHAIR UNTIL NEXT MEDICATION PASS. PT VERBALIZED UNDERSTANDING. WILL CONTINUE TO MONITOR
--- NOTE | 2020-01-07 14:00 | NUR ---
PT SITTING UP IN CHAIR RESP ARE EVEN AND UNLABORED. NO DISTRESS NOTED. CALL LIGHT IN REACH. WILL CONTINUE TO MONITOR.
--- NOTE | 2020-01-07 14:30 | NUR ---
POKE WITH MULU BRICE EXPLAINED PLAN OF CARE AND ISOLATION PER PATIENTS REQUEST TO INFORM.
--- NOTE | 2020-01-07 16:05 | NUR ---
PT SITTING UP IN CHAIR. RESP ARE EVEN AND UNLABORED. NO DISTRESS NOTED. CALL LIGHT IN REACH. WILL CONTINUE TO MONITOR
--- NOTE | 2020-01-07 17:30 | NUR ---
PT SET UP FOR PM MEAL.
--- NOTE | 2020-01-07 18:45 | NUR ---
RECEIVED REPORT FROM ELI COELHO.
--- NOTE | 2020-01-07 18:55 | NUR ---
RECEIVED PT AWAKE AND ALERT, RESP EVEN AND UNLABORED. PT WATCHING TV, NO NEEDS AT THIS TIME.
--- NOTE | 2020-01-07 19:45 | NUR ---
INFORMED PT OF PLAN OF CARE. PT WITH NO NEEDS AT THIS TIME. CALL THURSTON IN REACH.
--- NOTE | 2020-01-07 20:30 | NUR ---
PT AWAKE AND ALERT. RESP EVEN AND UNLABORED. ASSESSMENT COMP. PT REQUESTED COFFEE, PROVIDED. NO C/O PAIN OR SOB. NO OTHER NEEDS AT THIS TIME. CALL THURSTON WITH IN REACH.
--- NOTE | 2020-01-07 21:11 | NUR ---
THIS NURSE VERIFIED ALL MEDICATIONS GIVEN TO PATIENT BY NURSE MICHAEL COELHO.
--- NOTE | 2020-01-07 22:00 | NUR ---
PT WATCHING TV, RESP EVEN AND UNLABORED. CALL THURSTON WITH IN REACH.
[2020-01-08] VITALS (40 sets, daily range): BP systolic 73–165; BP diastolic 54–98
--- NOTE | 2020-01-08 | NUR ---
PT AWAKE AND ALERT. NO C/O SOB. RESP EVEN AND UNLABORED. PT REQUESTED PUDDING AND ICE, PROVIDED. PT WITH NO OTHER NEEDS AT THIS TIME. WATCHING TV. INFORMED PT TO TRY TO GET SOME REST. CALL THURSTON IN REACH.
--- NOTE | 2020-01-08 02:00 | NUR ---
PT WITH EYES CLOSED, RESP EVEN AND UNLABORED. CALL THURSTON IN REACH.
--- NOTE | 2020-01-08 04:00 | NUR ---
PT SITTING ON SIDE OF BED. PT RELATED POSITION FEELS BETTER. PT ACCIDENTLY PULLED IV OUT OF LH. DRESSING APPLIED, NEW IV STARTED TO RH. LABS DRAWN. CALL THURSTON IN REACH.
[2020-01-08 05:45] LABS: HEMOGLOBIN 10.7 g/dl (14.0-18.0); MEAN CELL VOLUME 86.7 fL CALC (80.0-100.0); MEAN CORPUSCULAR HGB 23.8 pG CALC (26.0-32.0); MEAN CORPUSCULAR HGB CONC 27.4 g/dL CAL (32.0-36.0); RED BLOOD COUNT 4.5 mill/uL (4.70-6.10); RED CELL DISTRI WIDTH 18.5 % (11.5-15.5)
--- NOTE | 2020-01-08 06:00 | NUR ---
PT BACK IN BED, EYES CLOSED, RESPONDS TO RN ENTERING ROOM. RESP EVEN AND UNLABORED. CALL THURSTON IN REACH.
[2020-01-08 06:08] LABS: CREATININE 2.3 mg/dL (0.7-1.3); POTASSIUM 4.7 mmol/l (3.5-5.1)
--- NOTE | 2020-01-08 07:30 | NUR ---
PT RESTING IN BED AWAKE. PT IS ALERT AND ORIENTED X3. SHIFT ASSESSMENT COMPLETED AT THIS TIME. IV PATENT X1. PT ASSISTED UP TO [facility] AT THIS TIME. SET UP FOR AM MEAL. CALL LIGHT IN REACH. WILL CONTINUE TO MONITOR
--- NOTE | 2020-01-08 08:45 | NUR ---
TURNED O2 DOWN TO 8LNC HI FLOW
--- NOTE | 2020-01-08 09:11 | NUR ---
PT O2 SATS 65%-70%. TURNED O2 BACK UP TO 10LNC HI MARCUS SATS NOW 88% TO 90%
--- NOTE | 2020-01-08 09:40 | NUR ---
DR GRIGSBY AT BEDSIDE
--- NOTE | 2020-01-08 10:00 | NUR ---
PT SITTING UP IN CHAIR. RESP ARE EVEN AND UNLABORED. NO DISTRESS NOTED. CALL LIGHT IN REACH. WILL CONTINUE TO MONITOR
--- NOTE | 2020-01-08 11:35 | NUR ---
THIS NURSE INTO ROOM TO OBTAIN ACCUCHECK. AND SWAB FOR COVID-19 WELL FOR THE FL ANDREA PER THE INSTRUCTION OF KARLAO. PT TOLERATED WELL. SET UP FOR NOON MEAL. WILL CONTINUE TO MONIOTR.
--- NOTE | 2020-01-08 11:50 | NUR ---
NOTIFIED DR GRIGSBY OF SATS 85% ON O2 HI MARCUS 10L NC. PT SEEMS TO NOT BE DROWSY WELL ORDERS RECEIVED FOR STAT ABG. RT NOTIFIED.
--- NOTE | 2020-01-08 12:04 | NUR ---
RT AT BESIDE FOR STAT ABG
--- NOTE | 2020-01-08 12:16 | NUR ---
DR GRIGSBY NOTIFIED OF ABG RESULTS. RECIEVED ORDERS TO INTUBATE PATIENT
--- NOTE | 2020-01-08 12:30 | NUR ---
THIS LOGGING EQUIPMENT MECHANIC AT BEDSIDE TO DISCUSS ABG RESULTS WITH PATIENT AND THE RECOMMENDATION TO INTUBATE PATIENT. PATIENT REFUSES INTUBATION AT THIS TIME. STATING "I DO NOT FEEL IT IS NEEDED" EXPLAINED AGAIN THAT ABG RESULTS HAD WORSENED DUE TO HI FLOW O2. PT VERBALIZED UNDERSTANDING AND CONTINUES TO REFUSE INTUBATION. DR GRIGSBY MADE AWARE OF REFUSAL. RT TO PLACE PATIENT ON A VENTI MASK. WILL CONTINUE TO MONITOR
--- NOTE | 2020-01-08 12:42 | NUR ---
CALLED TO PT ROOM FOR INTUBATION. PT REFUSED TO BE INTUBATED POST ABG. [facility]. RN ELI AWARE. PT TOLERATING WELL
--- NOTE | 2020-01-08 13:36 | NUR ---
RT AT BEDSIDE TO CREATE VENTI MASK WITH PEEP.
--- NOTE | 2020-01-08 14:57 | NUR ---
PT SITTING UP IN CHAIR AT THIS TIME WITH EYES CLOSED. RESP ARE EVEN AND UNLABORED ON VENTI MASK AT THIS TIME. CALL LIGHT IN REACH. WILL CONTINUE TO MONITOR
--- NOTE | 2020-01-08 14:59 | NUR ---
PT REMAINS ON VENTI MASK 50% AT THIS TIME. NO REPEAT ABG ORGERED. DR. MCCAIN IS AWARE. AWAITING ORDERS.
--- NOTE | 2020-01-08 15:41 | NUR ---
RT AT BEDSIDE FOR REPEAT ABG
--- NOTE | 2020-01-08 16:00 | NUR ---
DR GRIGSBY CALLED WITH ABG RESULTS. ORDERS RECEIVED FOR CXR PORTABLE
--- NOTE | 2020-01-08 16:20 | NUR ---
RADIOLOGY AT BEDSIDE FOR PORTABLE CXR.
--- NOTE | 2020-01-08 18:00 | NUR ---
DR TRACEY NOTIFIED OF PATIENT O2 SATS. ALSO PATIENT [address] BE[address] TRACEY NOTIFED OF THAT WELL.
--- NOTE | 2020-01-08 18:30 | NUR ---
INTO ROOM PT GIVES VERBAL CONSENT FOR INTUBATION AT THIS TIME. 1849-ETOMIDATE 20MG IVP BY DR CARDENAS 1850-ROCORONIUM 100MG IVP BY DR CARDENAS 1854- INTUBATED WITH 7.5 ET @22 LIP 1914-TLC RIJ PLACED BY DR CARDENAS 1919-OG PLACED BY Leon MORALES RN 1929-XRAY AT BEDSIDE TO CONFIRM PLACEMENT OF ALL 1939-LINENS CHANGED ON PATIENT 1999-RT AT BEDSIDE FOR REPEAT ABG 2004- DR TRACEY NOTIFIED OF ABG RESULTS NEW ORDERS RECIEVED.
--- NOTE | 2020-01-08 19:45 | NUR ---
REPORT GIVEN BY ELI COELHO. PATIENT IS SEDATED AND VENTED. RESP EVEN AND UNLABORED. OG PRESENT DRAINING COLLINS FLUID ON LIS. RIJ TLC, INFUSING DIPIRVAN. MOORE DRAINING TO GRAVIY. SCD PRESENT AND PUMPING. BILAT WRIST RESTIANTS PRESENT WITH GOOD CIRCULATION TO HANDS.
[2020-01-08 20:34] LABS: HEMATOCRIT 36.8 % (39.0-50.0); HEMOGLOBIN 10.3 g/dl (14.0-18.0); IMMATURE GRANULOCYTES 0.3 % (0.0-5.0); MEAN CELL VOLUME 85.4 fL CALC (80.0-100.0); MEAN CORPUSCULAR HGB 23.9 pG CALC (26.0-32.0); NEUT# 5.35 thou/uL (1.82-7.42); RED BLOOD COUNT 4.31 mill/uL (4.70-6.10); RED CELL DISTRI WIDTH 17.9 % (11.5-15.5)
[2020-01-08 21:31] LABS: ALBUMIN 2.9 g/dL (3.2-5.0); CREATININE 2.3 mg/dL (0.7-1.3); POTASSIUM 4.3 mmol/l (3.5-5.1); TOTAL PROTEIN 5.6 g/dL (6.3-8.2)
[2020-01-08 21:32] LABS: BILIRUBIN, TOTAL 0.8 mg/dL (0.0-1.4)
--- NOTE | 2020-01-08 21:45 | NUR ---
PATIENT SUCTIONED AND PM MEDS GIVEN
--- NOTE | 2020-01-08 22:24 | NUR ---
SPUTUM OBTAINED BY RT
[2020-01-09] VITALS (34 sets, daily range): BP systolic 74–125; BP diastolic 48–70
--- NOTE | 2020-01-09 00:10 | NUR ---
PATIENT SEDATED AND VENTED IN BED. PERFORMED SUCTION.
--- NOTE | 2020-01-09 02:00 | NUR ---
PATIENT SEDATED AND VENTED PERFORMED SUCTION. NO S/S OF DISTRESS NOTED AT THIS TIME
--- NOTE | 2020-01-09 04:50 | NUR ---
DIPRIVAN TUBING CHANGED, OSCAR EMPITED, LABS DRAWN
--- NOTE | 2020-01-09 05:35 | NUR ---
DAILY WEIGHT TAKEN :103.0 KG
[2020-01-09 05:50] LABS: HEMATOCRIT 34.2 % (39.0-50.0); HEMOGLOBIN 9.6 g/dl (14.0-18.0); MEAN CELL VOLUME 84.4 fL CALC (80.0-100.0); MEAN CORPUSCULAR HGB 23.7 pG CALC (26.0-32.0); MEAN CORPUSCULAR HGB CONC 28.1 g/dL CAL (32.0-36.0); RED BLOOD COUNT 4.05 mill/uL (4.70-6.10); RED CELL DISTRI WIDTH 18.1 % (11.5-15.5)
[2020-01-09 06:15] LABS: ALBUMIN 2.5 g/dL (3.2-5.0); BILIRUBIN, TOTAL 0.6 mg/dL (0.0-1.4); CREATININE 2.3 mg/dL (0.7-1.3); MAGNESIUM 1.9 mg/dL (1.6-2.3); POTASSIUM 3.8 mmol/l (3.5-5.1); TOTAL PROTEIN 5.2 g/dL (6.3-8.2)
--- NOTE | 2020-01-09 09:00 | NUR ---
DR TRACEY @BEDSIDE FOR ASSESSMENT.
--- NOTE | 2020-01-09 09:10 | NUR ---
FIO2 INCREASED TO 60% PER DR. TRACEY. SPUTUM SPECIMEN COLLECTED AND SENT TO LAB.
--- NOTE | 2020-01-09 09:12 | NUR ---
RT @BEDSIDE FOR SPUTUM COLLECTION. HOUSE SUP WILL CALL FOR SPECIALTY MATTRESS. SPOKE WITH PHARMACY ABOUT ORDERING SPECIALTY ACCUCHECKS.
--- NOTE | 2020-01-09 13:30 | NUR ---
PT TRANSFERED TO SPECIALTY AIR MATTRESS WITH ASSIST x3 INCLUDING RT.
--- NOTE | 2020-01-09 18:12 | NUR ---
ACCUCHECK COMPLETED; NO COVERAGE NEEDED. ABX STARTED. ORAL CARE COMPETED. OG TURNED OFF AFTER PO MEDS GIVEN BY OG. RASS -2. RESTRAINTS RESPOSITIONED. NO RESIDULE IN OG.
--- NOTE | 2020-01-09 19:00 | NUR ---
RECEIVED REPORT FROM AM NURSE. PATIENT APPEARS IN NO DISTRESS. PATIENT IS ON VENT WITH NO SIGNS OF PAIN OR DISCOMFORT. PROPOFOL INFUSING 15MCG. WILL CONTINUE TO MONITOR.
--- NOTE | 2020-01-09 20:00 | NUR ---
ASSESSMENT COMPLETED. PATIENT WITH NO SIGNS OF PAIN OR DISCOMFORT. PATIENT TOLERATING VENT WELL. NO ISSUES. RESTRAINTS INTACT. MEDICATION INFUSING. VITALS STABLE. WILL CONTINUE TO MONITOR PATIENT.
--- NOTE | 2020-01-09 21:00 | NUR ---
PATIENT MEDICATED. PATIENT CONTINES TO TOLERATE VENT WELL. PATIENT WITH NO SIGNS OF DISTRESS. PROPOFOL INFUSING. NO CHANGES. ORAL CARE PROVIDED. WILL CONTINUE TO MONITOR.
--- NOTE | 2020-01-09 22:00 | NUR ---
PATIENT TOLERATING VENT WELL. ORAL CARE PROVIDED. PATIENT WITH INCREASE SECRETIONS. VITALS STABLE. VITALS STABLE. PATIENT IN NO SIGNS OF DISTRESS. WILL CONTINUE TO MONITOR PATIENT.
--- NOTE | 2020-01-09 23:00 | NUR ---
NO CHANGES. PATIENT WITH GOOD OUTPUT. VITALS STABLE. PATIENT TOLERATING VENT WELL. WILL CONTINUE TO MONITOR.
[2020-01-10] VITALS (27 sets, daily range): BP systolic 100–142; BP diastolic 59–98
--- NOTE | 2020-01-10 | NUR ---
PATIENT HAD 6 BEATS OF VTACH. PATIENTS VITALS STABLE. NO SIGNS OF DISCOMFORT. WILL NOTIFY MD.
--- NOTE | 2020-01-10 01:00 | NUR ---
SPOKE TO DR TRACEY REGARDING PATIENT HAVING EPISODE OF VTACH. HE ORDERED [facility] LAB IS AM. PATIENT WITH NO MORE VTACH. VITALS STABLE. TOLERATING VENT WELL. NO SIGNS OF DISTRESS. WILL CONTINUE TO MONITOR.
--- NOTE | 2020-01-10 02:00 | NUR ---
PATIENT CONTINUES WITH GOOD OUTPUT. PATIENT PROVIDED WITH MOUTH CARE. PATIENT IN NO SIGNS OF PAIN OR DISCOMFORT. VITALS STABLE. RESTRAINTS INTACT. WILL CONTINUE TO MONITOR PATIENTL.
--- NOTE | 2020-01-10 03:37 | NUR ---
PATIENT ROUNDED ON. PATIENT CONTINUES TO TOLERATE VENT WELL. NO SIGNS OF PAIN OR DISCOMFORT. MOORE GOOD OUTPUT. PATIENT VITALS STABLE. NO CHANGES TO MEDICATION. WILL CONTINUE TO MONITOR.
--- NOTE | 2020-01-10 04:00 | NUR ---
PATIENT CONTINUES WITH PROPOFOL. RATE INCREASED. PATIENT FIGHTING VENT. MEDICATION ADJUSTED. PATIENT WITH NO SIGNS OF PAIN. VITALS STABLE. WILL CONTINUE TO MONITOR PATIENT.
--- NOTE | 2020-01-10 05:00 | NUR ---
ANALYTICAL SCIENCES DIRECTOR ASSISTED WITH XRAY. PATIENT TOLERATING WELL. NO SIGNS OF DISTRESS. PROPOFOL INFUSING. VITALS STABLE. WILL CONTINUE TO MONITOR PATIENT.
[2020-01-10 05:02] LABS: HEMATOCRIT 35.1 % (39.0-50.0); HEMOGLOBIN 10.1 g/dl (14.0-18.0); MEAN CELL VOLUME 82.4 fL CALC (80.0-100.0); MEAN CORPUSCULAR HGB 23.7 pG CALC (26.0-32.0); MEAN CORPUSCULAR HGB CONC 28.8 g/dL CAL (32.0-36.0); RED BLOOD COUNT 4.26 mill/uL (4.70-6.10); RED CELL DISTRI WIDTH 18.6 % (11.5-15.5)
[2020-01-10 05:15] LABS: ALBUMIN 2.6 g/dL (3.2-5.0); BILIRUBIN, TOTAL 0.8 mg/dL (0.0-1.4); CREATININE 1.9 mg/dL (0.7-1.3); MAGNESIUM 1.8 mg/dL (1.6-2.3); POTASSIUM 3.8 mmol/l (3.5-5.1); TOTAL PROTEIN 5.4 g/dL (6.3-8.2)
--- NOTE | 2020-01-10 06:00 | NUR ---
PATIENT TOLERATING VENT. ABG OBTAINED BY RT. PATIENTS VITALS STABLE. PATIENT WITH NO SIGNS OF DISTRESS. ORAL CARE PROVIDED. WILL CONTINUE TO MONITOR.
--- NOTE | 2020-01-10 09:00 | NUR ---
ANGLE SHEARER UNABLE TO WEIGH PT R/T BED NOT ZEROD PRIOR TO TRANSFERING PT TO SPECIALTY AIR MATTRESS.
--- NOTE | 2020-01-10 09:00 | NUR ---
DR TRACEY ON UNIT. ENTERED PTS ROOM FOR AM ASSESSMENT. BREATHING REGULAR/UNLABORED ON VENT @60% FIO2. ABD SOFT. OG SUCTION ON LIS; DRAINING GREEN/BROWN LIQUID. CATH MOORE DRAINING YELLOW URINE TO GRAVITY; PERICARE COMPLETED. PT ON SPECIALTY AIR MATTRESS TO PREVENT PRESSURE ULCERS. SCD'S OFF, HEPARIN ORDER PLACED. SOFT RESTRAINTS IN PLACE ON TAD WRIST. EYES PERRLA. ORAL CARE & SUCTIONING COMPLETED. PULSES STRONG.
--- NOTE | 2020-01-10 10:00 | NUR ---
ENTERED PTS ROOM FOR AM MEDICATIONS. STOPPED OG. VERIFIED VS. CHANGED PROPOFOL DRIP & TUBING. EMPTIED OG CANISTER & CATH MOORE. CLEANED UP PTS AREA.
--- NOTE | 2020-01-10 13:30 | NUR ---
ENTERED ROOM FOR MEDICATION & TEMP CHECKED. PT AFEBRILE. MONITORING EQUIPEMENT & TUBES ORGANIZED. HOB RAISED FOR COMFORT. PT REMAINS ON AIR MATTRESS. VSS. WILL CONTINUE TO MONITOR.
--- NOTE | 2020-01-10 17:45 | NUR ---
ENTERED PTS ROOM TO MEDICATE & ACCUCHECK. OG SUCTION STOPPED, FLUSHED WITH 100ML WATER, THEN MEDICATION ADDED AFTER CRUSHING, THEN FLUSHED WITH 250ML WATER. OG REMAINS OFF FOR DIGESTION. RASS -1; PT CALM. NO INSULIN COVERAGE NEEDED. MONITORING EQUIPMENT & TUBING ORGANIZED, HOB LOWERED.
--- NOTE | 2020-01-10 20:30 | NUR ---
SHIFT ASSESSMENT COMPLETED. PATIENT TOLERATING THE VENT WELL. VENT SETTINGS SEDATED ON DIPRIVAN INFUSION AT 25 MCG/KG/MIN. 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 BILATERAL SOFT RESTRAINTS IN PLACE.
--- NOTE | 2020-01-10 22:00 | NUR ---
VSS. NO SIGNS OF ANY PAIN OR DISCOMFORTS.
--- NOTE | 2020-01-10 23:00 | NUR ---
DIUERESING WELL FROM BUMEX GIVEN EARLIER. NO CHANGES TO REPORT.
--- NOTE | 2020-01-10 23:56 | NUR ---
VENT SETTINGS UNCHANGED. VENT WELL TOLERATED BY PATIENT. DIPRIVAN GTT CONTINUES WITH ADEQUATE SEDATION. RASS -3. SR WITH AVB AND BBB ON MONITOR. MOORE DRAINING LARGE AMOUNT CLEAR YELLOW URINE.
[2020-01-11] VITALS (25 sets, daily range): BP systolic 110–140; BP diastolic 52–71
--- NOTE | 2020-01-11 02:00 | NUR ---
CONTINUES TO REST CALMLY-SEDATED ON DIPROVAN GTT-RASS -3.
--- NOTE | 2020-01-11 04:00 | NUR ---
COMPLETE BED BATH, LINENS CHANGED. ORAL CARE. SUX ETT AND ORALLY. SUX ORALLY FOR COPIOUS AMOUNTS OF THICK CLEAR SECRETIONS. BREATH SOUNDS DIMINISHED THROUGHOUT. GENERALIZED EDEMA. ANGELICA HOSE APPLIED. GOOD URINE OUTPUT.
--- NOTE | 2020-01-11 06:00 | NUR ---
BLOOD DRAWN FROM [facility] FOR AM LAB WORK. XRAY HERE FOR PORTABLE CHEST. PATIENT WITH ADEQUATE SEDATION DIPROVAN AT 25 MCG-RASS -2.
[2020-01-11 06:40] LABS: HEMATOCRIT 34.1 % (39.0-50.0); HEMOGLOBIN 9.9 g/dl (14.0-18.0); IMMATURE GRANULOCYTES 0.3 % (0.0-5.0); MEAN CELL VOLUME 81.4 fL CALC (80.0-100.0); MEAN CORPUSCULAR HGB 23.6 pG CALC (26.0-32.0); NEUT# 4.54 thou/uL (1.82-7.42); RED BLOOD COUNT 4.19 mill/uL (4.70-6.10); RED CELL DISTRI WIDTH 18.6 % (11.5-15.5)
[2020-01-11 06:57] LABS: CREATININE 1.7 mg/dL (0.7-1.3); POTASSIUM 3.8 mmol/l (3.5-5.1)
--- NOTE | 2020-01-11 07:45 | NUR ---
PT RESTING IN BED SEDATED AND VENTED. SHIFT ASSESSMENT COMPLETED AT THIS TIME. IV PATENT X1. CALL LIGHT IN REACH. WILL CONTINUE TO MONITOR.
--- NOTE | 2020-01-11 09:30 | NUR ---
DR GRIGSBY AT BEDSIDE AT THIS TIME.
--- NOTE | 2020-01-11 10:15 | NUR ---
PT RESTING IN BED SEDATED AND INTUBATED AT THIS TIME. ON SPECIALTY AIR MATTRESS. WILL CONTINUE TO MONITOR
--- NOTE | 2020-01-11 10:48 | NUR ---
PT SUCTIONED. MINIMAL AMOUNT OF WHITE CLEAR SECREATIONS.
--- NOTE | 2020-01-11 12:00 | NUR ---
PT RESTING IN BED SEADATED AND INTUBATED. NO DISTRESS NOTED.WILL CONTINUE TO MONITOR CLOSELY.
--- NOTE | 2020-01-11 14:00 | NUR ---
PT RESTING IN BED SEDATED AND INTUBATED. RESP ARE EVEN AND UNLABORED. NO DISTRESS NOTED. CALL LIGHT IN REACH. WILL CONTINUE TO MONIOTR.
--- NOTE | 2020-01-11 14:00 | NUR ---
IV site discontinued, cath intact. No edema , no redness, voices no discomfort.
--- NOTE | 2020-01-11 16:05 | NUR ---
PT RESTING IN BED SEDATED AND INTUBATED. RESP ARE EVEN AND UNLABORED. NO DISTRESS NOTED. WILL CONTINUE TO MONITOR.
--- NOTE | 2020-01-11 17:20 | NUR ---
CONTINUOUS TUBE FEED STARTED JEVITY 1.5CAL 15CC/HR VIA OG TUBE. WILL CONTINUE TO MONITOR.
--- NOTE | 2020-01-11 20:05 | NUR ---
PT. STABLE ON THE VENT IN NO DISTRESS. RESPS UNLABORED. BP/HR STABLE. CALL LIGHT WITHIN REACH. AFEBRILE. ROM AND RELEASE PROVIDED. PT. REPOSITIONED FOR COMFORT. LUNGS CTA. BOWEL SOUNDS ACTIVE THROUGHOUT. DISTIL PULSES INTACT. KANGAROO PUMP INFUSING AT 15 ML SUPPLEMENT/HR 1.5 JEVITY. ORAL CARE AND DEEP SUCTIONING PROVIDED. WILL CONTINUE TO CLOSELY MONITOR.
--- NOTE | 2020-01-11 21:52 | NUR ---
REPORT FROM Juan M MERRITT RN. ASSUMED PT. CARE.
--- NOTE | 2020-01-11 22:00 | NUR ---
PT. AGAIN REPOSITIONED FOR COMFORT. JEVITY ADDED TO KANGAROO PUMP. SKIN REMAINS WARM AND DRY. ROM AND RELEASE PROVIDED AT THIS TIME. MEDICATED PER PHYSICIAN ORDERS. MEDS GIVEN VIA OG TUBE AND FLUSHED. CALL LIGHT REMAINS WITHIN REACH. WILL CONTINUE TO CLOSELY MONITOR.
--- NOTE | 2020-01-11 23:15 | NUR ---
PT. STATUS UNCHANGED. CALL LIGHT REMAINS WITHIN REACH. STABLE ON THE VENT. WILL CONTINUE TO MONITOR.
[2020-01-12] VITALS (26 sets, daily range): BP systolic 97–138; BP diastolic 54–77
--- NOTE | 2020-01-12 00:15 | NUR ---
RT. AND RN AT BEDSIDE AT THIS TIME. ORAL CARE AND DEEP SUCTIONING PROVIDED AT THIS TIME. PT. TOLERATE WELL. PROPOFOL DRIP CONTINUES TO INFUSE AT 35 MCG AT THIS TIME. REMAINS STABLE ON THE VENT. AFEBRILE. ACCUCHECK 147. NO COVERAGE AT THIS TIME. PT. REPOSITIONED FOR COMFORT. CALL LIGHT REMAINS WITHIN REACH. ROM AND RELEASE PROVIDED.
--- NOTE | 2020-01-12 01:41 | NUR ---
PT. REMAINS RESTFUL ON THE VENT. RESPS VENT MAINTAINED. PT. REMAINS STABLE ON THE VENT WITH PROPOFOL DRIP AND JEVITY 1.5 HARRY INFUSIN. CALL LIGTH WITHIN REACH. WILL CONTINUE TO MONITOR.
--- NOTE | 2020-01-12 04:05 | NUR ---
PT. REPOSITIONED FOR COMFORT. REMAINS STABLE ON THE VENT, SETTINGS UNCHANGED. ORAL CARE AND SUCTIONING PROVIDED. PROPOFOL DRIP CONTINUES TO INFUSE AT 35 MCG. CALL LIGHT REMAINS WITHIN REACH.
--- NOTE | 2020-01-12 05:23 | NUR ---
RT. AT BEDSIDE TO ASSESS PATIENT. REMAINS AFEBRILE. CALL LIGHT REMAINS WITHIN REACH. PT. REMAINS STABLE ON THE VENT. SETTINGS UNCHANGED. JEVITY CONTINUES TO INFUSE ORDERED VIA KANGAROO PUMP. WILL CONTINUE TO CLOSELY MONITOR.
[2020-01-12 06:20] LABS: HEMATOCRIT 33.2 % (39.0-50.0); HEMOGLOBIN 9.8 g/dl (14.0-18.0); MEAN CELL VOLUME 81.4 fL CALC (80.0-100.0); MEAN CORPUSCULAR HGB CONC 29.5 g/dL CAL (32.0-36.0); RED BLOOD COUNT 4.08 mill/uL (4.70-6.10); RED CELL DISTRI WIDTH 18.6 % (11.5-15.5)
[2020-01-12 06:36] LABS: ALBUMIN 2.3 g/dL (3.2-5.0); ALKALINE PHOSPHATASE 63 u/l (38-126); BILIRUBIN, TOTAL 0.6 mg/dL (0.0-1.4); BUN 58 mg/dL (8-23); BUN/CREATININE RATIO 41 (12-20 (CALC)); CHLORIDE 97 mmol/l (95-108); CREATININE 1.4 mg/dL (0.7-1.3); GFR 50 ML/MIN (>=60 (CALC)); GFR FOR AFR.AMER. > 60 ML/MIN (>=60 (CALC)); POTASSIUM 3.1 mmol/l (3.5-5.1); SODIUM 140 mmol/l (137-146)
[2020-01-12 06:38] LABS: ANION GAP 9 (6-22 (CALC)); CARBON DIOXIDE 37 mmol/l (22-30); SGOT/AST 27 u/l (19-48)
--- NOTE | 2020-01-12 07:30 | NUR ---
PT RESTING IN BED SEDATED AND INTUBATED. NO DISTRESS NOTED. SHIFT ASSESSMENT COMPLETED AT THIS TIME. IV PATENT X1. WILL CONTINUE TO CLOSELY MONITOR.
--- NOTE | 2020-01-12 09:10 | NUR ---
COVI-19 TEST NEGATIVE. WEANING BEGAN FOR EXTUBATION
--- NOTE | 2020-01-12 10:00 | NUR ---
PT AWAKE AND ABLE TO FOLLOW COMMANDS AT THIS TIME. DR TEAGUE NOTIFIED AND RT NOTIFIED.
--- NOTE | 2020-01-12 10:15 | NUR ---
DR TEAGUE AT BEDSIDE AT THIS TIME FOR ASSESSMENT. OK TO EXTUBATE.
--- NOTE | 2020-01-12 10:30 | NUR ---
PT EXTUBATED AT THIS TIME. PT PLACED ON O2 3L NC AT THIS TIME. PT DOING WELL.
--- NOTE | 2020-01-12 10:52 | NUR ---
PT COUGHING AND SELF SUCTIONING AT THIS TIME. O2 SATS REMAIN >85%
--- NOTE | 2020-01-12 11:30 | NUR ---
CALL PLACED TO YUNIEL EDGAR VOICEMAIL LEFT TO UPDATE
--- NOTE | 2020-01-12 12:02 | NUR ---
ICE CHIPS PROVIDED FOR PATIENT.
--- NOTE | 2020-01-12 13:09 | NUR ---
PT EXTUBATED AT 1100 HRS PER DOCTOR ORDER FVC 900CC RESPONDS TO VERBAL COMMANDS FOOD HEAD LIFT PLACED ON 3LPM HFNC SATS 86-90% TROY FAIR
--- NOTE | 2020-01-12 13:28 | NUR ---
spoke with and daughter. update provided.
--- NOTE | 2020-01-12 14:00 | NUR ---
PT RESTING IN BED AWAKE AND WATCHING TV. RESP ARE EVEN AND UNLABORED. NO DISTRESS NOTED. CALL LIGHT IN REACH. WILL CONTINUE TO MONITOR
--- NOTE | 2020-01-12 16:00 | NUR ---
PT MOVED TO ICU RROM 3 VIA BED. PT TOLERATED WELL.
--- NOTE | 2020-01-12 17:30 | NUR ---
PT SET UP FOR PM MEAL. ASSISTED IN EATING. PT TOLERATED WELL.
--- NOTE | 2020-01-12 18:09 | NUR ---
PT RESTING IN BED AWAKE AT THIS TIME. RESP ARE EVEN AND UNLABORED. NO DISTRESS NOTED. CALL LIGHT IN REACH. WILL CONTINUE TO MONITOR.
--- NOTE | 2020-01-12 18:45 | NUR ---
REPORT FROM Juan M MERRITT RN. ASSUMED PT. CARE.
--- NOTE | 2020-01-12 19:30 | NUR ---
PT. FOUND RESTING IN BED WITH EYES CLOSED IN NO DISTRESS. RESPS EVEN, SHALLOW, UNLABORED. SKIN WARM AND DRY. TEMP 97.2. REPOSITIONED FOR COMFORT. PT. ORIENTED X 3, BUT INTERMITTENTLY CONFUSED. BOWEL SOUNDS ACTIVE THROUGHOUT. CLEAR UPPERS AND DIMINISHED BASES BILAT. TRACE LOWER EXT EDEMA NOTED. EARL. PT. SPO2 IS [id number]% ON 4L NC THAT IS IN THE MOUTH BECAUSE PATIENT IS MOUTH BREATHING. CALL LIGHT AND BED MECHANICS EXPLAINED TO PATIENT. HE REPORTS 4/10 LOWER BACK PAIN AND HAS THIS CHRONICALLY, WILL SPEAK WITH PHYSICIAN ABOUT SOMETHING FOR PAIN. WILL CONTINUE TO CLOSELY MONTIOR.
--- NOTE | 2020-01-12 20:55 | NUR ---
PT. REMAINS STABLE. NO DISTRESS. VOICES NO COMPLAINTS OR NEEDS AT THIS TIME.
--- NOTE | 2020-01-12 21:46 | NUR ---
REPORTS FROM Juan M MERRITT RN. ASSUMED PT. CARE.
--- NOTE | 2020-01-12 22:14 | NUR ---
PT. REMAINS STABLE. VSS. BP/HR STABLE. SPO2 90% ON 3L NC. MEDICATED PER PHYSICIAN ORDERS. ROCEPHIN INFUSED. CENTRAL LINE FLUSED UNDER ASEPTIC TECHNIQUE. PT. AGAIN REPOSITIONED. UPDATED ON PLAN OF CARE. REMAINS INTERMITTENTLY CONFUSED STATING THERE IS A CAMERA UNDER THE COVERS. PT. SHOWN THERE WAS NOTHING UNDER THE COVERS. MOORE CATHETER REMAINS PATENT. CALL LIGHT PLACED BACK WITHIN REACH AND PT. PROVIDED WITH HIS PHONE. WILL CONTINUE TO CLOSELY MONITOR.
[2020-01-13] VITALS (11 sets, daily range): BP systolic 104–130; BP diastolic 58–72
--- NOTE | 2020-01-13 00:10 | NUR ---
PT. RESTING IN BED WITH EYES CLOSED IN NO DISTESS. RESPS REMAIN EVEN, SHALLOW AND UNLABORED. STABLE ON THE MONITOR. BP/HR STABLE. AFEBRILE.
--- NOTE | 2020-01-13 02:05 | NUR ---
PT. CONTINUES TO REST WITHOUT COMPLAINTS. VSS. SPO2 INTERMITTENTLY LOW IN THE MID/LOW 80'S CALL LIGHT REMAINS WITHIN REACH. WILL CONTINUE TO CLOSELY MONITOR.
--- NOTE | 2020-01-13 03:15 | NUR ---
PT. AWAKE, CALLING FOR "HELP". PT. REMAINS AWAKE, ALERT, ORIENTED X 3. STATES HE NEED A DRINK OF WATER. PROVIDED WITH WATER AND REPOSITIONED. PT. REQUESTING A SLEEPING PILL AT THIS TIME. PT. INFORMED THAT IS WAS TOO LATE FOR AN HS SLEEPING PILL AT THIS TIME. UPON CALLING, PT. SPO2 FOUND TO BE 52-54% AND THAT HE HAD TAKEN OFF HIS NASAL CANNULA. NASAL CANNULA REPLACED. CALL LIGHT REMAINS WITHIN REACH. WILL CONTINUE TO MONITOR.
--- NOTE | 2020-01-13 05:35 | NUR ---
PT. FOUND SITTING WITH LEGS OVER THE SIDE OF THE BED YELLING "HELP". PT. STATES HE WANTS TO GET UP. ATTEMPTS TO PLACE PATIENT IN BEDSIDE CHAIR UNSUCCESSFUL WITH 2 RN ASSIST. PT. UNABLE TO BEAR WEIGHT. ASSISTED BACK TO BED AT THIS TIME. PARTIAL BED BATH PROVIDED. LINENS CHANGED AND REPOSITIONED FOR COMFORT.
[2020-01-13 06:05] LABS: HEMOGLOBIN 10.7 g/dl (14.0-18.0); MEAN CELL VOLUME 83.7 fL CALC (80.0-100.0); MEAN CORPUSCULAR HGB 23.6 pG CALC (26.0-32.0); MEAN CORPUSCULAR HGB CONC 28.2 g/dL CAL (32.0-36.0); RED BLOOD COUNT 4.54 mill/uL (4.70-6.10); RED CELL DISTRI WIDTH 18.5 % (11.5-15.5)
--- NOTE | 2020-01-13 06:05 | NUR ---
MOORE EMPTIED, SPO2 PROBE CHANGED. RT. AT BEDISDE TO ADMINISTER NEB TREATMENT. PT. REPOSITIONED FOR COMFORT. PICTURE OF BUTTOCKS OBTAINED AND IN CHART. CALL LIGHT WITHIN REACH.
[2020-01-13 06:19] LABS: ALKALINE PHOSPHATASE 74 u/l (38-126); BILIRUBIN, TOTAL 0.8 mg/dL (0.0-1.4); BUN 54 mg/dL (8-23); BUN/CREATININE RATIO 39 (12-20 (CALC)); CHLORIDE 97 mmol/l (95-108); CREATININE 1.4 mg/dL (0.7-1.3); GFR 50 ML/MIN (>=60 (CALC)); GFR FOR AFR.AMER. > 60 ML/MIN (>=60 (CALC)); MAGNESIUM 1.6 mg/dL (1.6-2.3); POTASSIUM 3.6 mmol/l (3.5-5.1); SODIUM 145 mmol/l (137-146); TOTAL PROTEIN 5.8 g/dL (6.3-8.2)
[2020-01-13 06:24] LABS: ANION GAP 14 (6-22 (CALC)); CARBON DIOXIDE 38 mmol/l (22-30)
[2020-01-13 06:31] LABS: ALBUMIN 2.8 g/dL (3.2-5.0); SGOT/AST 54 u/l (19-48)
--- NOTE | 2020-01-13 07:00 | NUR ---
REPORT RECVD FROM MELITON SOTO AT START OF SHIFT.
--- NOTE | 2020-01-13 07:55 | NUR ---
PT REPOSITIONED IN BED [id number]. FEED PT BREAKFAST D/T UNCOORDINATION. PT HAS RIGHT SIDE OF EYEGLASSES BLACKED OUT, STATES HE IS "1 EYED". PT THANKFUL FOR HELP. OPENED PTS BLINDS & TURNED ON HIS TV, REMINDING HIM HOW TO USE CALLBELL/TV REMOTE.
--- NOTE | 2020-01-13 08:05 | NUR ---
RT @BEDSIDE FOR EKG.
--- NOTE | 2020-01-13 08:15 | NUR ---
DR GRIGSBY @BEDSIDE FOR ASSESSMENT.
--- NOTE | 2020-01-13 09:11 | NUR ---
DR EVANS NOTIFIED OF CARDIOLOGY CONSULT.
--- NOTE | 2020-01-13 09:30 | NUR ---
ENTERED ROOM WHEN PT WAS YELLING "HELP". PT STATES A "REALLY FAT GIRL CAME & SAT ON HIM". ASSURE PT NOONE HAS COME IN HIS ROOM AND/OR SAT ON HIM.
--- NOTE | 2020-01-13 09:58 | NUR ---
RT @BEDSIDE FOR BREATHING TREATMENT.
--- NOTE | 2020-01-13 10:45 | NUR ---
physical therapy @bedside. assisted pt up to recliner with max assist. pt unable to put any weight on his own. beds changed out to regular mattress, instead of continuing on air mattress.
--- NOTE | 2020-01-13 11:02 | NUR ---
MIKAYLA VELOZ @BEDSIDE FOR CARDIOLOGY CONSULT.
--- NOTE | 2020-01-13 11:08 | NUR ---
GOLDEN, CASE MANAGEMENT, @BEDSIDE. THIS RN CALLING ER FIND OUT IF WE CAN INTEROGATE PTS [facility] PACEMAKER IN HOUSE
--- NOTE | 2020-01-13 11:57 | NUR ---
PER [facility] LANGUAGE PATH, PT HAS A CARDIO DANIELA PACEMAKER. ASPHALT PATCHER NOTIFIED.
--- NOTE | 2020-01-13 12:20 | NUR ---
01/13/20 The patient is seen for evaluation today. Please refer to evaluation for detailed summary. He has an Am Pac score of 6 indicating the need for ECF and extensive rehab but with cardiac precautions. He required max assist of 2 for bed to chair transfers but was noted to improve when returning BTB. His vitals remained at baseline during the eval. Functionally he requires quite a bit of assistance but needs continued work to improve independence and decrease his bruden of care
--- NOTE | 2020-01-13 12:30 | NUR ---
ICU STAFF TALKED TO PTS FRIEND THAT SENT HIM TO ER TO FIND PTS CHERI. FRIEND STATES DIONISIOET IS AT HOME BUT HE WILL BRING IT UP TODAY TO VERIFY PACEMAKER INFORMATION.
--- NOTE | 2020-01-13 13:05 | NUR ---
PT FEED HIMSELF LUNCH. PT PLACED BACK ON HIGHFLOW NC FOR LUNCH THEN PLACED BACK ON OXYMASK PTS O2 DROPPED INTO 70-80'S%.
--- NOTE | 2020-01-13 13:28 | NUR ---
PT EDUCATED ON FLUID INPUT & OUTPUT. 600cc CLEAR DARK YELLOW URINE FROM CATH MOORE.
--- NOTE | 2020-01-13 15:01 | NUR ---
PT C/O CHRONIC BACK PAIN. PT ENCOURAGED TO USE BED CONTROLS & TURN NEEDED TO GET COMFORTABLE. DR GRIGSBY NOTIFIED. ADDITIONAL PAIN MEDICINE ORDER FAXED TO PHARMACY.
--- NOTE | 2020-01-13 15:49 | NUR ---
RELEASE OF MEDICAL RECORDS CONSENT FAXED TO DR CROOKS @ [phone].
--- NOTE | 2020-01-13 15:55 | NUR ---
ENTERED PTS ROOM TO GIVE HIM LORTAB, PT SLEEPING. EYES CLOSED. APPEARS RESTFUL. WILL CONTINUE TO MONITOR.
--- NOTE | 2020-01-13 16:02 | NUR ---
PHYSICAL THERAPY @BEDSIDE TO TEACH PT EXERCISES.
--- NOTE | 2020-01-13 16:53 | NUR ---
PT LAYING IN BED, YELLING "HEY" & "HELP" WHILE CALLBELL ON PTS CHEST. UPON ENTERING THE ROOM (MULTIPLE TIMES) PT RESPONDS "I FORGOT". MEET PTS FRIEND/ROOMMATE DOWNSTAIRS TO RETRIEVE PTS WALLET. NO PACEMAKER CARD FOUND IN PTS WALLET.
--- NOTE | 2020-01-13 17:25 | NUR ---
SPOKE WITH PTS FRIEND/ROOMMATE WHILE PT WAS ON SPEAKERPHONE WITH HIM, GAVE FRIEND PTS CODE.
--- NOTE | 2020-01-13 17:43 | NUR ---
PT SITTING UP IN BED, FEEDING HIMSELF DINNER. PT REPOSINOED HIGHER IN BED x2. PT ENCOURAGED TO DO MORE FOR HIMSELF HE IS ABLE.
--- NOTE | 2020-01-13 18:45 | NUR ---
RECEIVED REPORT FROM LORELEI COELHO.
--- NOTE | 2020-01-13 19:50 | NUR ---
PT AWAKE AND ALERT, ANSWERS QUESTIONS APPROPRIATELY, NO C/O SOB OR PAIN. AMIODARONE INFUSING AT 16.5ML VIA PUMP. PT MOVES ALL EXTREMITIES. NO NEEDS AT THIS TIME. CALL THURSTON IN REACH.
--- NOTE | 2020-01-13 19:50 | NUR ---
PT AWAKE AND ALERT. ANSWERED QUESTIONS APPROPRIATELY. AMIODARONE INFUSING AT 0.5MG/MIN, 16.7ML/HR ON IV PUMP. RESP EVEN AND UNLABORED, NO NEEDS AT THIS TIME. CALL THURSTON IN REACH.
--- NOTE | 2020-01-13 22:00 | NUR ---
PT WITH EYES CLOSED, RESPONDED TO RN WALKING INTO ROOM. RESP EVEN AND UNLABORED. NO DISTRESS NOTED. CALL THURSTON IN REACH.
[2020-01-14] VITALS (15 sets, daily range): BP systolic 87–138; BP diastolic 48–70
--- NOTE | 2020-01-14 | NUR ---
PT WITH EYES CLOSED. RESPONDED TO VERBAL STIMULI. PT ASKED FOR ICE CHIPS, PROVIDED. RESP EVEN AND UNLABORED. NO COMPLAINTS OR OTHER NEEDS AT THIS TIME. CALL THURSTON IN REACH. ENCOURAGED PT TO TURN.
--- NOTE | 2020-01-14 02:00 | NUR ---
PT WITH EYES CLOSED. RESP EVEN AND UNLABORED. CALL BE IN REACH.
--- NOTE | 2020-01-14 04:00 | NUR ---
PT AWAKE AND ALERT. ENCOURAGED PT TO TURN IN BED. PT RELATED HE HAS BEEN MOVING. PLACED PILLOW UNDER L SIDE TO PROMOTE LYING ON R SIDE. PT REQUESTED ICE CHIPS, 1/2 CUP PROVIDED. NO C/O SOB OR PAIN AT THIS TIME. CALL THURSTON IN PLACE.
--- NOTE | 2020-01-14 04:30 | NUR ---
LABS DRAWN VIA [place] [facility] FROM [facility]. FLUSHED WITH NS.
[2020-01-14 05:17] LABS: ALBUMIN 2.8 g/dL (3.2-5.0); BILIRUBIN, TOTAL 0.8 mg/dL (0.0-1.4); CREATININE 1.5 mg/dL (0.7-1.3); POTASSIUM 3.9 mmol/l (3.5-5.1); TOTAL PROTEIN 5.8 g/dL (6.3-8.2)
[2020-01-14 05:18] LABS: MAGNESIUM 2.3 mg/dL (1.6-2.3)
--- NOTE | 2020-01-14 05:30 | NUR ---
RESP AT BEDSIDE, NEB TX STARTED.
[2020-01-14 06:02] LABS: HEMATOCRIT 36.2 % (39.0-50.0); HEMOGLOBIN 10.2 g/dl (14.0-18.0); MEAN CORPUSCULAR HGB 23.7 pG CALC (26.0-32.0); MEAN CORPUSCULAR HGB CONC 28.2 g/dL CAL (32.0-36.0); RED BLOOD COUNT 4.31 mill/uL (4.70-6.10); RED CELL DISTRI WIDTH 17.9 % (11.5-15.5)
--- NOTE | 2020-01-14 06:49 | NUR ---
REPORT TO LORELEI COELHO.
--- NOTE | 2020-01-14 07:00 | NUR ---
RECVD REPORT FROM MELITON RODRIGUEZ AT START OF SHIFT.
--- NOTE | 2020-01-14 07:15 | NUR ---
ACCUCHECK COMPLETED. PT REQUEST STAFF PLUG IN HIS PHONE WHILE PULLING ON MONITORING EQUIPMENT. PT REORIENTED. FRIEND WILL BRING DIRECTOR OF CARDIOLOGY SERVICE LINE TODAY, PER YETERDAY. PT ABLE TO SAY NAME, PLACE, DATE, .
--- NOTE | 2020-01-14 07:30 | NUR ---
PT ABLE TO PULL HIMSELF UP IN BED WHEN BED FLATTENED. PT SITTING UP IN BED, FEEDING HIMSELF BREAKFAST.
--- NOTE | 2020-01-14 08:55 | NUR ---
RT @BEDSIDE. HIGHFLOW NC TITRATED DOWN FROM 15L TO 10L.
--- NOTE | 2020-01-14 09:06 | NUR ---
PT SLEEPING IN BED ON R SIDE. VSS. WILL CONTINUE TO MONITOR.
--- NOTE | 2020-01-14 11:18 | NUR ---
PHYSICAL THERAPY @BEDSIDE.
--- NOTE | 2020-01-14 12:40 | NUR ---
PT SET UP FOR SELF BATH WITH ASSIST. LINENS CHANGED.
--- NOTE | 2020-01-14 13:15 | NUR ---
PT MOVED TO ICU 6 D/T SPACE LIMITATIONS FOR ISOLATION ROOMS NEEDED.
--- NOTE | 2020-01-14 13:49 | NUR ---
PHSYICAL THERAPY @BEDSIDE, ASSISTING PT BACK TO BED.
--- NOTE | 2020-01-14 14:40 | NUR ---
Patient is seen in AM for transfer training with cardiac precautions. His Am Pac score is unchanged from yesterday although he is assisting me more with the transfer/ His transferred with max assist bed to chair and required max assist for bed mobility. His BP was 90/40 with O2 sats initially dropping into the 70s but receovering after a couple of minutes. His HR was 67 and he was limited from further activity in the morning due to dypsnea. In the PM the patient assisted with transfer and his BP dropped to 80/40 although he was asymprtomatic. He did receive gentle AAROM to all 4 extremities but this was cut short as he took a little longer to recover from dropping o2 sats. Dynamioc therapeutic activity 45 min
--- NOTE | 2020-01-14 15:38 | NUR ---
FEED PT A SUGER FREE ICE CREAM & BOTTLE OF WATER.
--- NOTE | 2020-01-14 16:58 | NUR ---
RT @BEDSIDE WITH PT; TITRATED O2 DOWN TO 6L HIGHFLOW NC.
--- NOTE | 2020-01-14 17:12 | NUR ---
U/S @BEDSIDE FOR ECHO.
--- NOTE | 2020-01-14 18:11 | NUR ---
PT REPOSITIONED BY STAFF x2 AFTER ECHO COMPLETED. PT SITTING UP, EATING DINNER.
--- NOTE | 2020-01-14 20:00 | NUR ---
FIRST ROUND CHECKS INCLUDING INTRODUCTION AND CARE PLAN REVIEWED. DENIES PAIN. HAS NO COMPLAINTS OR REQUESTS AT THIS TIME.
--- NOTE | 2020-01-14 22:00 | NUR ---
HS MEDS AND BLOOD SUGAR ASSIST BY OTHER STAFF. REMAINS STABLE.
[2020-01-15] VITALS (12 sets, daily range): BP systolic 93–142; BP diastolic 48–82
--- NOTE | 2020-01-15 | NUR ---
RESTING WITH NO COMPLAINTS. AWAKENS EASILY. VITAL SIGNS REMAIN STABLE AND AFEBRILE.
--- NOTE | 2020-01-15 02:00 | NUR ---
ASSIST WITH ADJUSTMENT UP IN BED. SKIN CARE GIVEN. FLUIDS AND ICE CHIPS OFFERED.
--- NOTE | 2020-01-15 04:00 | NUR ---
RESTLESS THROUGHOUT NIGHT. FINDING LEGS OVER BED MATTRESS. PT STATES TO LEAVE HIM ALONE HE IS ANYWAY. PULSE ON 93-95% WHEN CAN KEEP ON PT FINGER AND GIVE GOOD WAVE FORM.
[2020-01-15 05:14] LABS: HEMATOCRIT 33.9 % (39.0-50.0); HEMOGLOBIN 9.5 g/dl (14.0-18.0); MEAN CELL VOLUME 83.5 fL CALC (80.0-100.0); MEAN CORPUSCULAR HGB 23.4 pG CALC (26.0-32.0); RED BLOOD COUNT 4.06 mill/uL (4.70-6.10); RED CELL DISTRI WIDTH 17.8 % (11.5-15.5)
[2020-01-15 05:31] LABS: CREATININE 1.8 mg/dL (0.7-1.3); MAGNESIUM 2.2 mg/dL (1.6-2.3); POTASSIUM 3.8 mmol/l (3.5-5.1)
--- NOTE | 2020-01-15 06:01 | NUR ---
CONTINUES TO LAY SIDEWAYS IN BED. STATES HE WANTS TO GET UP AND TAKE A SHOWER. THEN HE STATES HE IS IN A CAR. DOES NOT BELIEVE HE IS IN THE HOSPITAL. HE IS ALERT TO SELF ONLY BUT IS COOPERATIVE AND FOLLOWS MOST COMMANDS.
--- NOTE | 2020-01-15 07:00 | NUR ---
REPORT RECVD FROM ROSELIA CHAMBERS AT START OF SHIFT.
--- NOTE | 2020-01-15 07:10 | NUR ---
PT SLEEPING IN BED, BREATHING EVEN/UNLABORED. VSS.
--- NOTE | 2020-01-15 09:08 | NUR ---
PT REMAINS ASLEEP. NO S/S OF DISCOMFORT. WILL CONTINUE TO MONITOR. BED ALARM SET D/T PT MOVING AROUND ON THE BED.
--- NOTE | 2020-01-15 09:13 | NUR ---
[facility] AFTER DC FROM [facility]
--- NOTE | 2020-01-15 09:25 | NUR ---
DR GRIGSBY @BEDSIDE FOR ASSESSMENT. RT @BEDSIDE FOR BREATHING TREATMENT. NS STOPPED. PT UNABLE TO MOVE SELF UP IN BED LIKE YESTERDAY. PT APPEARS MORE CONFUSED TODAY THAN YESTERDAY. PT REPEATEDLY TAKING OFF DUONEB DURING TREATMENT. PT PULLED UP & RESPOSITIONED IN BED x2.
--- NOTE | 2020-01-15 09:30 | NUR ---
DISCUSSED PTS DIABETIC/CARDIAC MEAL WITH DOLLY NUTRITION.
--- NOTE | 2020-01-15 09:40 | NUR ---
PT FOUND SLUMPED IN BED AGAIN. UPON ASKING PT WHY HE'S NOT SITTING UP, HE SAID "HE'LL GET TO THE SITTING UP PART IN A MINUTE".
--- NOTE | 2020-01-15 10:27 | NUR ---
PT APPEARS MORE ALERT & ORIENTED AT THIS TIME. ANSWERS A&O QUESTIONS CORRECTLY. BED ALARM REMAINS ON. TV TURNED ON FOR PT. PT FEED HIMSELF BREAKFAST.
--- NOTE | 2020-01-15 11:00 | NUR ---
PHYSICAL THERAPY @BEDSIDE TO TRANSFER TO RECLINER.
--- NOTE | 2020-01-15 11:30 | NUR ---
RT @BEDSIDE FOR ABG.
--- NOTE | 2020-01-15 11:59 | NUR ---
PT note Patient had increased confusion today according to nursing. His BP 136/77 when I went in to see him this morning. He is now assisting in bed mobility and transfers although it still takes mod max assist of 1, his Am Pac click 6 score improved to 9. He is unable to fully stand without assistance as of yet but did perfom his SPST this morning with mod max assist of 1/More importantly, he was assisting with transfers and despite losing his sitting balnace once, he had improved bed mobility and increased effort on his part. We will see him in PM as well to increase his activity
--- NOTE | 2020-01-15 12:17 | NUR ---
PT SITTING UP IN RECLINER SLEEPING, LUNCH TRAY IN FRONT OF PT ON BEDSIDE TABLE FOR WHEN HE WAKES UP.
--- NOTE | 2020-01-15 14:05 | NUR ---
RT @BEDSIDE FOR BREATHING TREATMENT. PT AWAKE, SITTING UP IN RECLINER, EATING LUNCH.
--- NOTE | 2020-01-15 14:55 | NUR ---
PT ASSISTED BACK TO BED AFTER PT MADE MULTIPLE STATEMENTS THAT HE WAS "GOING TO GET UP AND WALK AROUND". PT ALSO STATED "WE DONT MAKE ENOUGH MONEY TO MAKE THIS MOVIE". MAX ASSIST x2 TO TRANSFER.
--- NOTE | 2020-01-15 16:03 | NUR ---
physical therapy @bedside for exercises.
--- NOTE | 2020-01-15 16:29 | NUR ---
JENNA BUI NOTIFIED TO [facility] CONFIRMATION [id number]
--- NOTE | 2020-01-15 16:34 | NUR ---
PT note Patient is seen in AM for bed to chair transfers but concentrated on bed mobility and supoine to sit transfer- refer to AM note In the PM nursing had already gotten the patient BTB. He was then seen for PNF D1 flexion and extension to the bilateral extremities with resisitance x 20 reps each. Functionally he is improving and he has an Am Pac of 9 by days end indicating he would still do well for rehab to maximize his independence and reduce his fall risk.
--- NOTE | 2020-01-15 17:31 | NUR ---
ENTERED ROOM TO FIND PT NAKED, REMOVING MONITORING EQUIPEMENT, & HIDING THINGS UNDER HIS SCROTUM "FOR THE FUN OF IT". PT REDRESSED & RECONNECTED TO MONITORING EQUIPMENT. PT REDIRECTABLE WHILE STAFF IN THE ROOM. I&O COUNTED. PT SITTING UP IN BED, EATING DINNER. DR GRIGSBY NOTIFIED OF INCREASED CONFUSION. PTS PERSONAL PHONE CHARGING.
--- NOTE | 2020-01-15 18:20 | NUR ---
PT ABLE TO MOVE AROUND, REPOSITION SELF, THROW LEGS OVER RAILS BUT IS NOT ABLE TO FOLLOW DIRECTIONS FOR STAFF. PT STATES "NONE OF THIS MATTERS BC HE 2 DAYS AGO".
--- NOTE | 2020-01-15 19:03 | NUR ---
REPORT GIVEN BY LORELEI COELHO. PATIENT IN BED WATCHING TV. RESP EVEN AND UNLABORED. RT AT THE BEDISDE PLACING PATIENT ON BIPAP. NO S/S OF DISTRESS NOTED. MOORE DRAINING TO GRAVITY. RIJ TLC SALINE LOCKED. PATIENT INFORMED TO CALL WITH ANY QUESTIONS OR CONCERNS. PATIENT INFORMED TO LEAVE THE BIPAP ALONE AND TO NOT PULL IT OFF. WILL CONTIUNE TO KRISSY.
--- NOTE | 2020-01-15 20:15 | NUR ---
RIJ DRESSING CHANGE PERFORMED.
--- NOTE | 2020-01-15 22:24 | NUR ---
PATIENT RESTING WITH EYES CLOSED AND BIPAP IN PLACE. RESP EVEN AND UNLABORED. NO S/S OF DISTRESS NOTED.
[2020-01-16] VITALS (12 sets, daily range): BP systolic 96–113; BP diastolic 51–69
--- NOTE | 2020-01-16 00:15 | NUR ---
PATIENT REMAINS RESTING WITH EYES CLOSED. RESP EVEN AND UNLABORED. NO S/S OF DISTRESS NOTED. BIPAP IS STILL IN PLACE.
--- NOTE | 2020-01-16 02:02 | NUR ---
PATIENT RESTING WITH EYES CLOSED, BIPAP IN PLACE. RESP EVEN AND UNLABORED. NO S/S OF DISTRESS NOTED.
--- NOTE | 2020-01-16 02:30 | NUR ---
patient asked to be taken off bipap. 10L hiflow nc placed on patient.
--- NOTE | 2020-01-16 03:25 | NUR ---
PATIENT IS REMOVING PULSE OX, TELE, AND NOT KEEPING OXYGEN IN PLACE. PATIENT REMINDED ABOUT WHY IT IS IMPORTANT TO KEEP ITEMS IN PLACE. WILL CONTIUNE TO KRISSY
--- NOTE | 2020-01-16 04:04 | NUR ---
PLACED PATIENT BACK ON BIPAP. O2 SAT DROPPING BELOW 75%
--- NOTE | 2020-01-16 04:41 | NUR ---
PT REMOVED BIPAP STATING THAT HE HAS HAD ENOUGH
--- NOTE | 2020-01-16 04:58 | NUR ---
PATIENT HAS REMOVED TELE KRISSY. WILL CONTIUNE TO REMIND PATIENT WE NEED IT READ PROPERLY TO KRISSY HIM.
[2020-01-16 05:54] LABS: CREATININE 2.1 mg/dL (0.7-1.3); MAGNESIUM 2.2 mg/dL (1.6-2.3); POTASSIUM 3.9 mmol/l (3.5-5.1)
--- NOTE | 2020-01-16 06:25 | NUR ---
PATIENT REFUSED TO BE GIVEN HEPARIN THIS MORNING OR HAVE HIS TELE LEADS FIXED. HE STATED THAT HE WANTED ME TO GO AND LEAVE HIM ALONE. HE WAS INFORMED OF WHY IT IS IMPORTANT FOR HIM TO BE GIVEN HIS MEDICATION AND HAVE THE TELE LEADS FIXED. LOTTIE REY.
--- NOTE | 2020-01-16 07:30 | NUR ---
REPORT RECEIVED FROM NIGHT NURSE. PT RESTING IN BED. PT UNCOOPRATIVE AT TIMES. PT REFUSED TO BE TURNED. KEEPS TAKING OFF TELE LEADS AND OXYGEN. EDUCATED PT ON IMPORTANCE OF KEEPING OXYGEN AND LEADS ON. PT SOUNDS WHEEZING, RT CALLED FOR BREATHING TREATMENT. WILL CONTINUE TO MONITOR
--- NOTE | 2020-01-16 08:10 | NUR ---
PT PULLING AT TELE WIRES, PT PULLING OFF OXYGEN. PT ATTEMPTED TO HIT RN. EDUCATED PATIENT ON IMPORTANCE OF KEEP OXYGEN ON AND MONITOR ON. EDUCATED PT ON SOFT RESTRAINTS. REORIENTED PT. INFORMED PT THAT RESTRAINTS WILL BE PLACED TO KEEP HIM SAFE, EDUCATED HIM THAT WILL REMOVE RESTRAINTS WHEN PT IS COOPRATIVE AND SAFE. [facility] NOTIFIED
--- NOTE | 2020-01-16 09:15 | NUR ---
FISH WORM GROWER TRISH AT BEDSIDE TO ASSESS PT
--- NOTE | 2020-01-16 10:00 | NUR ---
PT RESTING IN BED WITH EYES CLOSED. NO DISTRESS NOTED. DENIES PAIN. WILL CONTINUE TO MONITOR
--- NOTE | 2020-01-16 10:25 | NUR ---
DR. SMITH AT BEDSIDE TO ASSESS PT
--- NOTE | 2020-01-16 10:27 | NUR ---
PT PLACED ON BIPAP SEE FLOW SHEET FOR SETTINGS P/ ABG ON 8LPM NC
--- NOTE | 2020-01-16 12:15 | NUR ---
PT RESTING IN BED WITH EYES CLOSED. BiPAP ON. NO DSITRESS NOTED. WILL CONTINUE TO MONITOR
--- NOTE | 2020-01-16 13:16 | NUR ---
DR. MERRILL NOTIFIED ABOUT ABG RESULTS. PLAN TO TRANSFER TO [facility].
--- NOTE | 2020-01-16 13:37 | NUR ---
CALLED JOELLE (NOK) . UPDATED ON PATIENT TRANSFER ORDER TO [facility]. CONSENT SIGNED.
--- NOTE | 2020-01-16 14:00 | NUR ---
PT RESTING IN BED WITH EYES CLOSED. BiPAP ON. NO DISTRESS NOTED. REFUSED TURN. WILL CONTINUE TO MONITOR
--- NOTE | 2020-01-16 14:07 | NUR ---
SPOKE WITH PLACIDO VELÁSQUEZ AT [facility] ABOUT TRANFER. WAITING FOR ACCEPTING DOCTOR
--- NOTE | 2020-01-16 14:43 | NUR ---
SPOKE WITH CHRISTEN RAMOS AT [facility]. PT ACCEPTED BY DR. GALDAMEZ TO ICU.
--- NOTE | 2020-01-16 14:48 | NUR ---
SPOKE WITH DENEEN AT [facility] [place]SP[place] TO [facility]
--- NOTE | 2020-01-16 16:00 | NUR ---
PT RESTING IN BED WITH EYES CLOSED. DENIES PAIN AND SOB. PT TURNED. DUODERM PLACED ON BUTTOCKS. WILL CONTINUE TO MONITOR
--- NOTE | 2020-01-16 18:34 | NUR ---
PT PLACED ON HIGH FLOW NC 8L/MIN HUM TO EAT DINNER. NO DISTRESS NOTED. DENIES PAIN AND SOB. REPORT TO BE GIVEN TO NIGHT NURSE
--- NOTE | 2020-01-16 19:54 | NUR ---
RECEIVED PHONE CALL FROM [facility] REQUESTING FACESHEET TO BE FAXED, FACE SHEET FAXED TO NUMBER PROVIDED FROM [facility].
--- NOTE | 2020-01-16 20:00 | NUR ---
[place] here.
--- NOTE | 2020-01-16 20:10 | NUR ---
[facility] left. (Vanesa) notified. report called to lior @ [facility] @ [phone] to pacu/icu [facility].
== END 2020-01-16 20:10 | DRG 208 ==
PROVIDERS: Emergency Medicine; Internal Medicine; Nurse Practitioner Family; ADMIT Internal Medicine
PROC: 5A09357 Assistance with Respiratory Ventilation, Less than 24 Consecutive Hours, Continuous Positive Airway Pressure (ICD-10-PCS; principal; 2020-01-06)
PROC: 5A1945Z Respiratory Ventilation, 24-96 Consecutive Hours (ICD-10-PCS; 2020-01-08)
PROC: 0BH17EZ Insertion of Endotracheal Airway into Trachea, Via Natural or Artificial Opening (ICD-10-PCS; 2020-01-08)
DX: J18.9 Pneumonia, unspecified organism (principal); J96.22 Acute and chronic respiratory failure with hypercapnia; J96.21 Acute and chronic respiratory failure with hypoxia; I50.43 Acute on chronic combined systolic (congestive) and diastolic (congestive) heart failure; J44.0 Chronic obstructive pulmonary disease with (acute) lower respiratory infection; J44.1 Chronic obstructive pulmonary disease with (acute) exacerbation; I13.0 Hypertensive heart and chronic kidney disease with heart failure and stage 1 through stage 4 chronic kidney disease, or unspecified chronic kidney disease; N17.9 Acute kidney failure, unspecified; I47.2 Ventricular tachycardia; E11.22 Type 2 diabetes mellitus with diabetic chronic kidney disease; N18.3 Chronic kidney disease, stage 3 (moderate); I25.10 Atherosclerotic heart disease of native coronary artery without angina pectoris; E11.40 Type 2 diabetes mellitus with diabetic neuropathy, unspecified; I25.5 Ischemic cardiomyopathy; I27.20 Pulmonary hypertension, unspecified; T50.916A Underdosing of multiple unspecified drugs, medicaments and biological substances, initial encounter; N40.0 Benign prostatic hyperplasia without lower urinary tract symptoms; B19.20 Unspecified viral hepatitis C without hepatic coma; E11.649 Type 2 diabetes mellitus with hypoglycemia without coma; E78.5 Hyperlipidemia, unspecified; Z99.81 Dependence on supplemental oxygen; Z86.73 Personal history of transient ischemic attack (TIA), and cerebral infarction without residual deficits; Z95.810 Presence of automatic (implantable) cardiac defibrillator; Z95.1 Presence of aortocoronary bypass graft; Z79.4 Long term (current) use of insulin; Z91.128 Patient's intentional underdosing of medication regimen for other reason; Z87.891 Personal history of nicotine dependence; Z20.828 Contact with and (suspected) exposure to other viral communicable diseases
CPT/HCPCS: J0282; J3475; S0164